=== PATIENT | female | born 2005 | race Caucasian/White ===

== ENCOUNTER 2025-03-29 17:43 | Emergency (ER) | payer MEDICAID, SELFPAY ==
--- OUTSIDE RECORDS SUMMARY | 2025-03-24 10:50 | XMS_ITS | Encounter Summary ---
Author Organization [facility] Address [address] [place] [address] Care Team Providers Care Irrigation Flume Layer Name Role Phone Departed Provider, [facility] Generic Primary Care Provider Unavailable Reason for Visit * Reason Comments Possible Encounter Details Date Type Department Care Team (Latest Contact Info) Description 03/24/2025 10:50 AM EDT Clinical Support [facility] [employer] [address] [place] [address] [phone] Dede Arauz LPN [address] [place] [phone] Amenorrhea (Primary Dx); Positive test; Screening for diabetes mellitus; Screen for sexually transmitted diseases; Screening for substance abuse; Exposure to varicella Social History Tobacco Use Types Packs/Day Years Used Date Smoking Tobacco: Never Smokeless Tobacco: Never Alcohol Use Standard Drinks/Week Comments Not Currently 0 (1 standard drink = 0.6 oz pur e alcohol) not while [facility] Answer Date Recorded In the past 12 months has [employer], gas, oil, or water [employer] threatened to shut off services in your home? No 09/12/2023 Social Connection and Isolat ion Panel [NHANES] Answer Date Recorded In a typical week, how many times do you talk on the phone with family, friends, or neighbors? More than three times a week 09/12/2023 How often do you get togethe r with friends or relatives? Twice a week 09/12/2023 How often do you attend chur or zoroastrian services? 1 to 4 times per year 09/12/2023 Do you belong to any clubs o r organizations such as druze groups, unions, fraternal or athletic groups, or school groups? No 09/12/2023 How often do you attend meet ings of the clubs or organizations you belong to? Never 09/12/2023 Are you , , di vorced, , never , or living with a partner? Never 09/12/2023 AUDIT-C Answer Date Recorded Q1: How often do you have a drink containing alcohol? Never 09/12/2023 Q2: How many drinks containi ng alcohol do you have on a typical day when you are drinking? Patient does not drink Q3: How often do you have si x or more drinks on one occasion? Never 09/12/2023 Overall Financial Resource Strain (CARDIA) Answe r Date Recorded How hard is it for you to pa y for the very basics like food, housing, medical care, and heating? Patient declined 09/12/2023 PHQ-2 Answer Date Recorded PHQ-2 Total Score 0 09/12/2023 [facility] - Occupational Stress Questionnaire Answer Date Recorded Do you feel stress - tense, restless, nervous, or anxious, or unable to sleep at night because your mind is troubled all the time - these days? Not at all 09/12/2023 Hunger Vital Sign Answer Date Recorded Within the past 12 months, y ou worried that your food would run out before you got the money to buy more. Never true 09/12/19 24 Within the past 12 months, t he food you bought just didn't last and you didn't have money to get more. Never true 09/12/2023 PRAPARE - Transportation Answer Date Re corded In the past 12 months, has l ack of transportation kept you from medical appointments or from getting medications? No 08/18 In the past 12 months, has l ack of transportation kept you from meetings, work, or from getting things needed for daily living? No 09/12/2023 Physical Activity Answer Date Recorded On average, how many days pe r week do you engage in moderate to strenuous exercise (like a brisk walk)? 3 09/12/2023 On average, how many minutes do you exercise per day at this level? 60 09/12/2023 Education Answer Date Recorded What is the highest level of school you have completed or the highest degree you have received? GED or equivalent Estimated Date of Delivery Comme nts Yes 11/13/2025 Based on last me nstrual period of 02/06/2025 Sex and Gender Information Value Date Recorded Sex Assigned at Female 04/22/2023 2:48 PM EDT Legal Sex Female 2:16 PM EST Gender Identity Female 10/23/2022 2:12 PM EDT Sexual Orientation Heterosexual (straight) 10/23 2:12 PM EDT documented as of this encounter Last Filed Vital Signs Vital Sign Reading Time Taken Comments Blood Pressure 122/66 03/24/2025 11:06 AM EDT Pulse 91 03/24/2025 11:06 AM EDT Temperature - - Respiratory Rate - - Oxygen Saturation 99% 03/24/2025 11:06 AM EDT Inhaled Oxygen Concentration - - Weight 92.5 kg (204 lb) 03/24/2025 11:06 AM EDT Height 163.8 cm (5' 4.5 ) 03/24/2025 11:06 AM ED T Body Mass Index 34.48 03/24/2025 11:06 AM EDT documented in this encounter Progress Notes * Dede Arauz LPN - 03/24/2025 11:34 AM EDT Patient seen in office today for nurse interview. Positive test in office today. LMP 02/06/2025. Patient taking vitamins. Labs ordered in EMR, patient aware to have labs drawn ASAPbefore first OB appointment. Patient denies any pain or bleeding and all precautions given. Packet mosquito bite prevention, and fish safety handout reviewed with patient and first OB scheduled for 04/07/2025 @ 11:30 am. Patient aware of first OB being at the [facility] and a complete exam including breast, vaginal, pap if needed, and STD screening. Dede Rosado LPN Cosigned by Ricco Lares MD at 03/24/2025 3:14 PM EDT documented in this encounter Plan of Treatment Upcoming Encounters Date Type Department Care Team (Late st Contact Info) Description 04/01/2025 2:15 PM EDT Office Visit [facility] [place] [address] [place] [phone] Tanvi Anthony, CHANGE DIRECTOR [address] [place] [address] 04/07/2025 11:30 AM EDT Initial [facility] [address] [facility] [address] [place] [phone] Pending Results Name Type Priority Associated Diagnoses Date /Time Hemoglobin A1C Lab Routine Amenorrhea Positive test Screening for diabetes mellitus 03/24/2025 12:25 PM EDT documented as of this encounter Procedures Procedure Name Priority Date/Time Associated Diagnosis Comments PAIN MANAGEMENT, FENTANYL, WITH CONFIRMATION, URINE Routine 03/24/2025 12:25 PM EDT Amenorrhea Positive test Screening for substance abuse HEMOGLOBINOPATHY EVALUATION Routine 03/24/2025 12:25 PM EDT Amenorrhea Positive test DRUG TOX MONITORING 9 W/CONF, URINE Routine 03/24/2025 12:25 PM EDT Amenorrhea Positive test Screening for substance abuse ANTIBODY SCREEN, REFLEX ID Routine 03/24/2025 12:25 PM EDT Amenorrhea Positive test SYPHILIS EUSEBIO REFLEX RPR TITER & TPPA Routine 03/24/2025 12:25 PM EDT Amenorrhea Positive test Screen for sexually transmitted diseases HIV 1/2 AG/AB CMIA REFLEX TO CONFIRMATION Routine 03/24/2025 12:25 PM EDT Amenorrhea Positive test Screen for sexually transmitted diseases HEPATITIS B VIRUS SURFACE ANTIBODY, QUANTITATIVE Routine 03/24/2025 12:25 PM EDT Amenorrhea Positive test Screen for sexually transmitted diseases HEPATITIS B VIRUS (HBV) SURFACE ANTIGEN SCREEN, REFLEX CONFIRMATION Routine 03/24/2025 12:25 PM EDT Amenorrhea Positive test Screen for sexually transmitted diseases COMPLETE BLOOD COUNT, WITH DIFFERENTIAL Routine 03/24/2025 12:25 PM EDT Amenorrhea Positive test HEPATITIS C VIRUS (HCV) ANTIBODY Routine 03/24/2025 12:25 PM EDT Amenorrhea Positive test Screen for sexually transmitted diseases HEPATITIS B VIRUS (HBV) CORE ANTIBODY TOTAL Routine 03/24/2025 12:25 PM EDT Amenorrhea Positive test Screen for sexually transmitted diseases ABO/RH Routine 03/24/2025 12:25 PM EDT Amenorrhea Positive test RUBELLA ANTIBODY IGG (SPANISH MEASLES) Routine 03/24/2025 12:25 PM EDT Amenorrhea Positive test URINALYSIS WITH MICROSCOPIC Routine 03/24/2025 12:25 PM EDT Amenorrhea Positive test URINE CULTURE Routine 03/24/2025 12:25 PM EDT Amenorrhea Positive test VARICELLA ZOSTER (VZV) ANTIBODY IGG Routine 03/24/2025 12:25 PM EDT Positive test Exposure to varicella POCT , URINE (CHARGE) Routine 03/24/2025 11:36 AM EDT Amenorrhea Positive test documented in this encounter Results * VARICELLA ZOSTER (VZV) ANTIBODY IGG (03/24/2025 12:25 PM EDT) Pathologist [facility] Varicella Zoster Antibody (VZV) IgG 1.11 S/CO [employer] Comment: Signal to Cut-off S/CO Interpretation --------- <1.00 Negative - Antibody not detected > or = 1.00 Positive - Antibody detected A positive result indicates that the patient has antibody to VZV but does not differentiate between an active or past infection. The clinical diagnosis must be interpreted in conjunction with the clinical signs and symptoms of the patient. This assay reliably measures immunity due to previous infection but may not be sensitive enough to detect antibodies induced by vaccination. Thus, a negative result in a vaccinated individual does not necessarily indicate susceptibility to VZV infection. A more sensitive test for vaccination-induced immunity is Varicella Zoster Virus Antibody Immunity Screen, ACIF. Blood Blood specimen / Unknown 03/24/2025 12:25 PM EDT 03/24/2025 12:25 PM EDT Narrative e-channel - 03/26/2025 6:48 AM EDT FASTING:NO FASTING: NO Ricco Lares MD LAB BLOOD ORDERABLES Final Re sult [facility] [address] [place] [phone] * HEMOGLOBINOPATHY EVALUATION (03/24/2025 12:25 PM EDT) Red Blood Cell Count 4.05 3.80 - 5.10 Million/u L [employer] Hemoglobin 11.8 11.7 - 15.5 g/dL [employer] Hematocrit 36.5 35.0 - 45.0 % [employer]able MCV 90.1 80.0 - 100.0 fL [employer] MCH 29.1 27.0 - 33.0 pg [employer]able RDW 13.2 11.0 - 15.0 % [employer] HGB A 97.7 >96.0 % [employer] Hgb F <1.0 <2.0 % [employer] Hgb A2 2.3 2.0 - 3.2 % Invoiceable Hgb Interpretation Q [employer] Comment: Normal phenotype. Blood Blood specimen / Unknown 03/24/2025 12:25 PM EDT 03/24/2025 12:25 PM EDT Narrative e-channel - 03/26/2025 6:48 AM EDT FASTING:NO FASTING: NO Ricco Lares MD LAB BLOOD ORDERABLES Final Re sult Performing Organization Address [facility] [[email or web address]] de Phone Number [facility] [address] [place] [phone] * RUBELLA ANTIBODY, IGG (SPANISH MEASLES) (03/24/2025 12:25 PM EDT) Rubella Antibody IgG 3.64 Index [employer] Comment: Index Interpretation ----- <0.90 Not consistent with immunity 0.90-0.99 Equivocal > or = 1.00 Consistent with immunity The presence of rubella IgG antibody suggests immunization or past or current infection with rubella virus. Blood Blood specimen / Unknown 03/24/2025 12:25 PM EDT 03/24/2025 12:25 PM EDT Narrative e-channel - 03/26/2025 6:48 AM EDT FASTING:NO FASTING: NO Ricco Lares MD LAB BLOOD ORDERABLES Final Re sult Performing Organization Address [facility] de Phone Number [facility] [address] [place] [phone] * URINE CULTURE (03/24/2025 12:25 PM EDT) Pathologist [facility] Culture SEE NOTE [employer] Comment: CULTURE, URINE, ROUTINE Micro Number: [id number] Test Status: Final Specimen Source: Urine, clean catch Specimen Quality: Adequate Result: Less than 10,000 CFU/mL of single Gram positive organism isolated. No further testing will be performed. If clinically indicated, recollection using a method to minimize contamination, with prompt transfer to Urine Culture Transport Tube, is recommended. Urine 03/24/2025 12:2 5 PM EDT 03/24/2025 12:25 PM EDT Narrative e-channel - 03/26/2025 6:48 AM EDT FASTING:NO FASTING: NO us Ricco Lares MD LAB AMB MICRO ORDERABLES Sera l Result Performing Organization Address [facility] [[email or web address]] de Phone Number Dada [address] [place] [phone] * Urinalysis with Microscopic (03/24/2025 12:25 PM EDT) Color YELLOW YELLOW [employer] Clarity CLEAR CLEAR Invoiceable Specific [place] 1.012 1.001 - 1.035 Invoiceable pH 7.0 5.0 - 8.0 [facility] Glucose, Urine, Random NEGATIVE NEGATIVE [employer] Bilirubin NEGATIVE NEGATIVE [employer]able Ketones NEGATIVE NEGATIVE [employer] Blood NEGATIVE NEGATIVE [employer] Protein NEGATIVE NEGATIVE [employer]able Nitrite NEGATIVE NEGATIVE [employer] Leukocyte Esterase NEGATIVE NEGATIVE [employer] WBC NONE SEEN < OR = 5 /HPF [employer]able RBC NONE SEEN < OR = 2 /HPF [employer] Squamous Epithelial Cells 0-5 < OR = 5 /HPF [employer] Bacteria NONE SEEN NONE SEEN /HPF [employer]able Hyaline Cast NONE SEEN NONE SEEN /LPF [employer] Note [employer] Comment: This urine was analyzed for the presence of WBC, RBC, bacteria, casts, and other formed elements. Only those elements seen were reported. Urine Urine specimen obtained by clean catch procedure / Unknown 03/24/2025 12:25 PM EDT 03/24/2025 12:25 PM EDT Narrative [facility] - 03/26/2025 6:48 AM EDT FASTING:NO FASTING: NO us Ricco Lares MD URINE ORDERABLES Final Result [facility] [address] [place] [phone] * Pain Management, Fentanyl, With Confirmation, Urine (Q [id number]) (03/24/2025 12:25 PM EDT) Fentanyl, Urine NEGATIVE <0.5 ng/mL [employer] Notes and Comments Q [facility]est [employer] Comment: This drug testing is for medical treatment only. Analysis was performed as non-forensic testing and these results should be used only by healthcare providers to render diagnosis or treatment, or to monitor progress of medical conditions. LDT Notes: Confirmation tests were developed and their analytical performance characteristics have been determined by [employer]. It has not been cleared or approved by the FDA. This assay has been validated pursuant to the CLIA regulations and is used for clinical purposes. Healthcare Providers needing Interpretation assistance, please contact us at [phone] ( ) M-F, 8am to 10pm EST Urine Urine specimen obtained by clean catch procedure / Unknown 03/24/2025 12:25 PM EDT 03/24/2025 12:25 PM EDT Narrative [facility] - 03/26/2025 6:48 AM EDT FASTING:NO FASTING: NO us Ricco Lares MD URINE ORDERABLES Final Result [facility] [address] [place] [phone] * Drug Tox Monitoring 9 w/Conf, Urine (Q [id number]) (03/24/2025 12:25 PM EDT) Amphetamines NEGATIVE <500 ng/mL [facility] Barbiturates, Urine NEGATIVE <300 ng/mL [employer] Benzodiazepines Urine NEGATIVE <100 ng/mL [facility] Buprenorphine, Urine NEGATIVE <5 ng/mL [facility] Cocaine, Semi-Quant NEGATIVE <150 ng/mL [facility] Heroin Metabolite NEGATIVE <10 ng/mL [facility] Marijuana Metabolite, 20 NEGATIVE <20 ng/mL [facility] MDMA/MDA NEGATIVE <500 ng/mL [facility] Methadone NEGATIVE <100 ng/mL [facility] Opiates Ur Ql NEGATIVE <100 ng/mL [facility] Oxycodone NEGATIVE <100 ng/mL [facility] Phencyclidine NEGATIVE <25 ng/mL [facility] Comment [facility] Comment: See Note 1 Note 1 This drug testing is for medical treatment only. Analysis was performed as non-forensic testing and these results should be used only by healthcare providers to render diagnosis or treatment, or to monitor progress of medical conditions. For assistance with interpreting these drug results, please contact a [employer] Toxicology Specialist: [phone] ( ), M-F, 8am-6pm EST. Urine Urine specimen obtained by clean catch procedure / Unknown 03/24/2025 12:25 PM EDT 03/24/2025 12:25 PM EDT Narrative e-channel - 03/26/2025 6:48 AM EDT FASTING:NO FASTING: NO Ricco Lares MD URINE ORDERABLES Final Result Performing Organization Address [facility] [[email or web address]] de Phone Number [facility] [address] [place] [phone] * Syphilis EUSEBIO reflex RPR Titer & TPPA (03/24/2025 12:25 PM EDT) Pathologist [facility] Syphilis EUSEBIO NEGATIVE NEGATIVE [employer] Comment: No antibodies to T. pallidum (the agent causing syphilis) were detected in the specimen. This result, however, does not exclude very recent T. pallidum infection; testing of a second specimen, collected 2-4 weeks after this specimen, is recommended if the index of suspicion for recent infection is high. Blood Blood specimen / Unknown 03/24/2025 12:25 PM EDT 03/24/2025 12:25 PM EDT Narrative e-channel - 03/26/2025 6:48 AM EDT FASTING:NO FASTING: NO Ricco Lares MD LAB BLOOD ORDERABLES Final Re sult Performing Organization Address [facility] [[email or web address]] de Phone Number [facility] [address] [place] [phone] * HIV 1/2 Ag/Ab CMIA Reflex to Confirmation (03/24/2025 12:25 PM EDT) HIV Final Interpretation HIV NEGATIVE [employer] Comment: HIV-1 antigen and HIV-1/HIV-2 antibodies were not detected. There is no laboratory evidence of HIV infection. HIV Ag/Ab, 4th Gen NON-REACTIV E NON-REAC TIVE [employer] Blood Blood specimen / Unknown 03/24/2025 12:25 PM EDT 03/24/2025 12:25 PM EDT Narrative e-channel - 03/26/2025 6:48 AM EDT FASTING:NO FASTING: NO Ricco Lares MD LAB BLOOD ORDERABLES Final Re sult Performing Organization Address [facility] de Phone Number Dada [address] [place] [phone] * HEPATITIS C VIRUS (HCV) ANTIBODY (03/24/2025 12:25 PM EDT) Hepatitis C Antibody NON-REACT DIANE NON-REACT DIANE [employer] Comment: HCV antibody was non-reactive. There is no laboratory evidence of HCV infection. In most cases, no further action is required. However, if recent HCV exposure is suspected, a test for HCV RNA (test code 80536) is suggested. For additional information please refer to http://education.[employer]/faq/DZM07d6 (This link is being provided for informational/ educational purposes only.) Blood Blood specimen / Unknown 03/24/2025 12:25 PM EDT 03/24/2025 12:25 PM EDT Narrative e-channel - 03/26/2025 6:48 AM EDT FASTING:NO FASTING: NO Ricco Lares MD LAB BLOOD ORDERABLES Final Re sult Performing Organization Address [facility] [[email or web address]] de Phone Number [facility]ada [address] [place] [phone] * HEPATITIS B VIRUS (HBV) CORE ANTIBODY TOTAL (03/24/2025 12:25 PM EDT) Hepatitis B Core Antibody Total NON-REACT DIANE NON-REACT DIANE [employer] Comment: For additional information, please refer to http://EXENDIS.[employer]/faq/DXP983 (This link is being provided for informational/ educational purposes only.) Blood Blood specimen / Unknown 03/24/2025 12:25 PM EDT 03/24/2025 12:25 PM EDT Narrative [facility] - 03/26/2025 6:48 AM EDT FASTING:NO FASTING: NO Ricco Lares MD LAB BLOOD ORDERABLES Final Re sult Performing Organization Address [facility] de Phone Number [facility] [address] [place] [phone] * (ABNORMAL) Hepatitis B Virus Surface Antibody, Quantitative (03/24/2025 12:25 PM EDT) Pathologist [facility] Hepatitis B Surface Ab (Quant) <5(L) > OR = 10 mIU/mL [employer] Comment: PATIENT DOES NOT HAVE IMMUNITY TO HEPATITIS B VIRUS. For additional information, please refer to http://[employer]/faq/KHJ415 (This link is being provided for informational/ educational purposes only). Blood Blood specimen / Unknown 03/24/2025 12:25 PM EDT 03/24/2025 12:25 PM EDT [facility] - 03/26/2025 6:48 AM EDT FASTING:NO FASTING: NO Ricco Lares MD LAB BLOOD ORDERABLES Final Re sult Performing Organization Address [facility] de Phone Number Dada [address] [place] [phone] * HEPATITIS B VIRUS (HBV) SURFACE ANTIGEN SCREEN, REFLEX CONFIRMATION (03/24/2025 12:25 PM EDT) Pathologist [facility] Hepatitis B Surface Ag Screen NON-REACT DIANE NON-REACT DIANE [employer] Comment: For additional information, please refer to http://EXENDIS.[employer]/faq/LGV169 (This link is being provided for informational/ educational purposes only.) Blood Blood specimen / Unknown 03/24/2025 12:25 PM EDT 03/24/2025 12:25 PM EDT Narrative [facility] - 03/26/2025 6:48 AM EDT FASTING:NO FASTING: NO us Ricco Lares MD LAB BLOOD ORDERABLES Final Re sult [facility] [address] [place] [phone] * Complete Blood Count, with Differential (03/24/2025 12:25 PM EDT) White Blood Cell Count 10.7 3.8 - 10.8 Thousand/u L Invoiceable Red Blood Cell Count 4.05 3.80 - 5.10 Million/uL Invoiceable Hemoglobin 11.8 11.7 - 15.5 g/dL [facility] Hematocrit 36.5 35.0 - 45.0 % [facility] MCV 90.1 80.0 - 100.0 fL [facility] MCH 29.1 27.0 - 33.0 pg [facility] MCHC 32.3 32.0 - 36.0 g/dL [employer] Comment: For adults, a slight decrease in the calculated MCHC value (in the range of 30 to 32 g/dL) is most likely not clinically significant; however, it should be interpreted with caution in correlation with other red cell parameters and the patient's clinical condition. RDW 13.2 11.0 - 15.0 % [facility] Platelet Count 362 140 - 400 Thousand/u L [facility] MPV 9.6 7.5 - 12.5 fL [facility] Abs Neutrophils Auto 7,747 1,500 - 7,800 cells/uL [facility] Abs Lymphocytes Auto 2,172 850 - 3,900 cells/uL [facility] Abs Monocytes Auto 696 200 - 950 cells/uL [facility] Abs Eosinophils Auto 54 15 - 500 cells/uL [facility] Abs Basophils Auto 32 0 - 200 cells/uL [facility] Neutrophils Auto 72.4 % [facility] Lymphocytes Auto 20.3 % [facility] Monocytes Auto 6.5 % [facility] Eosinophils Auto 0.5 % [facility] Basophils Auto 0.3 % [facility] Blood Blood specimen / Unknown 03/24/2025 12:25 PM EDT 03/24/2025 12:25 PM EDT Narrative [facility] - 03/26/2025 6:48 AM EDT FASTING:NO FASTING: NO Ricco Lares MD LAB BLOOD ORDERABLES Final Re sult Performing Organization Address [facility] Co de Phone Number Dada [address] [place] [phone] * Antibody Screen, Reflex ID (03/24/2025 12:25 PM EDT) Pathologist [facility] Antibody Screen, RBC w/Refl ID, Titer & Ag NO ANTIBODIES DETECTED [employer] Comment: Reference range No antibodies detected This assay is a screening test for the detection of red blood cell antibodies. The test is not to be used for pretransfusion screening or for the medical management of an alloimmunized . Blood Blood specimen / Unknown 03/24/2025 12:25 PM EDT 03/24/2025 12:25 PM EDT Narrative [facility] - 03/26/2025 6:48 AM EDT FASTING:NO FASTING: NO Ricco Lares MD BLOOD BANK TEST ORDERABLES Fi nal Result Performing Organization Address [facility] Co de Phone Number Dada [address] [place] [phone] * ABO/RH (03/24/2025 12:25 PM EDT) Pathologist [facility] ABO Group A Invoiceable Rh Type RH(D) POSITIVE [employer] Comment: For additional information, please refer to http://education.[employer]/faq/HFG878 (This link is being provided for informational/ educational purposes only.) Blood Blood specimen / Unknown 03/24/2025 12:25 PM EDT 03/24/2025 12:25 PM EDT Narrative [facility] - 03/26/2025 6:48 AM EDT FASTING:NO FASTING: NO us Ricco Lares MD BLOOD BANK TEST ORDERABLES Fi nal Result [facility] [address] [place] [phone] * (ABNORMAL) POCT , Urine (03/24/2025 11:36 AM EDT) Preg Test, Ur Positive(A ) Negative Lot Number na Change Person Pass Pass Urine 03/24/2025 11:3 6 AM EDT Ricco Lares MD POINT OF CARE TEST ORDERABLES Final Result documented in this encounter Visit Diagnoses Diagnosis Amenorrhea- Primary Absence of menstruation Positive test examination or test, positive result Screening for diabetes [place] Screen for sexually transmitted diseases Screening examination for venereal disease Screening for substance abuse Screening for unspecified condition Exposure to varicella Contact with or exposure to varicella documented in this encounter Care Teams Irrigation Flume Layer Relationship Specialty Start Date End Date Departed Provider, Franki Cid Generic PCP - General 12/18/24 documented as of this encounter
--- NOTE | ~2025-03-29 | US_ITS ---
CLINICAL HISTORY: Approximately 8 weeks . Complaining abdom US OB 1st trimester transabdominal Comparison: None provided Findings: Single intrauterine . CRL: 9.9 mm. EGA: 7 weeks, 1 day. ISRA: November 14, 2025. Normal yolk sac . Cardiac activity: 158 bpm. No subchorionic bleed. Right ovary 2.5 x 2.9 x 2.2 cm. Left ovary 2.4 x 2.4 x cm. IMPRESSION: Single intrauterine estimated 7 weeks, 1 day gestational age by today's ultrasound criteria. This document has been electronically signed by: Mary Bonilla MD on 03/29/2025 20:27:44
--- NOTE | 2025-03-29 17:45 | ED_ITS ---
HPI - General Adult General Chief complaint: Nausea/Vomiting/Diarrhea Stated complaint: vomiting, ? 7 wks Time Seen by Provider: 03/29/25 18:29 Related Data Previous Rx's ?Medication ?Instructions ?Recorded nitrofurantoin 100 mg PO Q12H 7 days #14 ca ps 03/29/25 monohydrate/macrocrystals 100 mg capsule (Macrobid) ondansetron 4 mg disintegrating 4 mg PO TID PRN nausea and 03/29/25 tablet vomiting 5 days #10 tabs Allergies Allergy/AdvReac Type Severity Reaction Status Date / Time No Known Allergies Allergy Verified 03/29/25 17:47 PMFSH Social History Social History Advance Directives: No Advance Directives Information Provided: No Do you have a plan to hurt others: No Plan Physical Exam ED Vital Signs: Vital Signs - 24 hr 03/29/25 17:46 Temperature 97.4 F Pulse Rate 89 Respiratory Rate 18 Blood Pressure 125/58 L Pulse Oximetry 97 Oxygen Delivery Method Room Air BMI result Body Mass Index 34.5 Course Course Course Narrative: Rapid medical examination performed in triage by Florencia Anderson PA-C. Patient is a 19 year old assigned female at presenting to the emergency department with nausea and vomiting in early . Detailed physical exam and review of systems are deferred to the database administration manager. Labs ordered. Patient placed back in the waiting room pending room availability and results. Patient denies any vaginal bleeding, vaginal discharge, or abdominal pain. Has an OBGYN appointment upcoming. Patient seen and dispositioned by Dr. Peralta. Please see his note from today. Medications Administered Discontinued Medications Generic Name Dose Route Start Last Admin Trade Name Collinsq PRN Reason Stop Dose Admin Ceftriaxone Sodium 1 gm 03/29/25 19:01 03/29/25 19:48 Ceftriaxone Sodium 1 Gm Vial IVPUSH 03/29/25 19:02 1 gm ONCE ONE Administration Sodium Chloride 1,000 mls @ 999 mls/hr 03/29/25 19:00 03/29/25 19:47 Ns IV 03/29/25 20:00 999 mls/hr .Q1H1M ILDA Administration Sodium Chloride 1,000 mls @ 999 mls/hr 03/29/25 19:00 03/29/25 19:48 Ns IV 03/29/25 20:00 999 mls/hr .Q1H1M ILDA Administration Ondansetron HCl 4 mg 03/29/25 19:00 03/29/25 19:47 Ondansetron Hcl 4 Mg/2 Ml Vial IVPUSH 03/29/25 19:01 4 mg ONCE ONE Administration Medical Decision Making Lab Data 03/29/25 17:55 03/29/25 17:55 Labs: Lab Results 03/29/25 03/29/25 03/29/25 Range/Units 17:55 18:00 19:22 WBC 10.7 (4.8-10.8) X10*3/uL RBC 4.09 L (4.20-5.50) X10*6/uL Hgb 12.1 (12.0-16.0) g/dl Hct 34.8 L (37.0-47.0) % MCV 85.1 (80.0-98.0) fL MCH 29.6 (27.0-33.0) pg MCHC 34.8 (31.0-35.0) g/dl RDW 13.6 (11.0-16.0) % Plt Count 339 (160-400) X10*3/uL MPV 8.8 L (9.4-12.3) fL Immature Gran % (Auto) 0.3 (0.0-0.4) % Neut % (Auto) 77.2 H (45-73) % Lymph % (Auto) 16.8 L (20-40) % [place] % (Auto) 5.1 (2-11) % Eos % (Auto) 0.3 (0-4) % Baso % (Auto) 0.3 (0-2) % Lymph # (Auto) 1.8 (1.2-4.9) X10*3/uL [place] # (Auto) 0.6 (0.1-1.2) X10*3/uL Eos # (Auto) 0.0 (0.0-0.4) X10*3/uL Baso # (Auto) 0.0 (0.0-0.2) X10*3/uL Abs Immat Gran (auto) 0.03 (0.00-0.03) X10*3/uL Absolute Neuts (auto) 8.3 (2.0-8.3) x10*3/uL Absolute Nucleated RBC 0.000 (0.0-0.012) X10*3/uL Nucleated RBC % (auto) 0.0 (0.0-0.2) /100WBC Sodium 138 (135-145) mmol/L Potassium 3.7 (3.3-5.1) mmol/L Chloride 102 (96-108) mmol/L Carbon Dioxide 24 (22-29) mmol/L Anion Gap 16 (12-20) BUN 5 L (9-16) mg/dL Creatinine 0.59 (0.5-1.4) mg/dL Estim Creat Clear Calc 165.1 Estimated GFR > 60 Random Glucose 88 (60-115) mg/dL Lactic Acid 0.9 (0.5-2.0) mmol/L Calcium 9.6 (8.4-10.2) mg/dL Magnesium 1.8 (1.6-2.6) mg/dL Total Bilirubin 0.9 (0.0-1.0) mg/dL AST 22 (5-31) U/L ALT 20 (0-31) U/L Alkaline Phosphatase 60 (39-117) U/L Total Protein 7.6 (6.5-8.0) g/dL Albumin 4.3 (3.5-5.0) g/dL Beta HCG, Quant 459252 mIU/mL Urine Color Dark Yellow Urine Appearance Cloudy Urine pH 7.5 (5.0-9.0) Ur Specific [place] 1.025 (1.005-1.025) Urine Protein 100 (2+) H (Neg-Trace) mg/dL Urine Glucose (UA) Negative (Negative) mg/dL Urine Ketones 15 (Negative) mg/dL Urine Blood Negative (Negative) Urine Nitrite Negative (Negative) Ur Leukocyte Esterase Large (3+) H (Negative) Urine RBC 0-2 (0-2) /HPF Urine WBC >50 H (0-5) /HPF Ur Squamous Epith Cells >20 (0-2) /HPF Urine Bacteria 4+ (None Seen) Hyaline Casts 3-5 (0-2) /LPF Blood Type 03/29/25 Range/Units 19:32 WBC (4.8-10.8) X10*3/uL RBC (4.20-5.50) X10*6/uL Hgb (12.0-16.0) g/dl Hct (37.0-47.0) % MCV (80.0-98.0) fL MCH (27.0-33.0) pg MCHC (31.0-35.0) g/dl RDW (11.0-16.0) % Plt Count (160-400) X10*3/uL MPV (9.4-12.3) fL Immature Gran % (Auto) (0.0-0.4) % Neut % (Auto) (45-73) % Lymph % (Auto) (20-40) % [place] % (Auto) (2-11) % Eos % (Auto) (0-4) % Baso % (Auto) (0-2) % Lymph # (Auto) (1.2-4.9) X10*3/uL [place] # (Auto) (0.1-1.2) X10*3/uL Eos # (Auto) (0.0-0.4) X10*3/uL Baso # (Auto) (0.0-0.2) X10*3/uL Abs Immat Gran (auto) (0.00-0.03) X10*3/uL Absolute Neuts (auto) (2.0-8.3) x10*3/uL Absolute Nucleated RBC (0.0-0.012) X10*3/uL Nucleated RBC % (auto) (0.0-0.2) /100WBC Sodium (135-145) mmol/L Potassium (3.3-5.1) mmol/L Chloride (96-108) mmol/L Carbon Dioxide (22-29) mmol/L Anion Gap (12-20) BUN (9-16) mg/dL Creatinine (0.5-1.4) mg/dL Estim Creat Clear Calc Estimated GFR Random Glucose (60-115) mg/dL Lactic Acid (0.5-2.0) mmol/L Calcium (8.4-10.2) mg/dL Magnesium (1.6-2.6) mg/dL Total Bilirubin (0.0-1.0) mg/dL AST (5-31) U/L ALT (0-31) U/L Alkaline Phosphatase (39-117) U/L Total Protein (6.5-8.0) g/dL Albumin (3.5-5.0) g/dL Beta HCG, Quant mIU/mL Urine Color Urine Appearance Urine pH (5.0-9.0) Ur Specific [place] (1.005-1.025) Urine Protein (Neg-Trace) mg/dL Urine Glucose (UA) (Negative) mg/dL Urine Ketones (Negative) mg/dL Urine Blood (Negative) Urine Nitrite (Negative) Ur Leukocyte Esterase (Negative) Urine RBC (0-2) /HPF Urine WBC (0-5) /HPF Ur Squamous Epith Cells (0-2) /HPF Urine Bacteria (None Seen) Hyaline Casts (0-2) /LPF Blood Type A Positive Discharge Plan Discharge Clinical Impression: Hyperemesis arising during , UTI (urinary tract infection) Patient Disposition: Home, Self-Care Instructions: Hyperemesis Gravidarum (ED), Urinary Tract Infection in (ED) Prescriptions: New ondansetron 4 mg tablet,disintegrating 4 mg PO TID PRN (Reason: nausea and vomiting) 5 Days Qty: 10 0RF nitrofurantoin monohyd/m-cryst [Macrobid] 100 mg capsule 100 mg PO Q12H 7 Days Qty: 14 0RF Rx Instructions: must administer with a meal/food Print Language: Prydeinig
[2025-03-29 17:46] VITALS: BP 125/58; PULSE 89; RESP 18; TEMP 36.3; O2SAT 97; BMI 34.5
[2025-03-29 18:08] LABS: Appearance Urine Cloudy; Glucose Urine UA Negative (Negative); PH 7.5 (5.0-9.0); Specific Gravity - Urine 1.025 (1.005-1.025); UMIC TRIGGER UACC YES
[2025-03-29 18:08] LABS: Hematocrit 34.8 % (37.0-47.0); Hemoglobin 12.1 g/dl (12.0-16.0); Imm Gran Abs Auto 0.03 X10*3/uL (0.00-0.03); Imm Gran Pct Auto 0.3 % (0.0-0.4); Lymphocytes Absolute Auto 1.8 X10*3/uL (1.2-4.9); MANUAL DIFF FLAG NO; Mean Corpuscular HGB Conc 34.8 g/dl (31.0-35.0); Mean Corpuscular Hemoglobin 29.6 pg (27.0-33.0); Mean Corpuscular Volume 85.1 fL (80.0-98.0); NRBC Abs Auto 0.000 X10*3/uL (0.0-0.012); NRBC Pct Auto 0.0 /100WBC (0.0-0.2); Platelet Count 339 X10*3/uL (160-400); Red Blood Count 4.09 X10*6/uL (4.20-5.50); White Blood Count 10.7 X10*3/uL (4.8-10.8)
[2025-03-29 18:17] LABS: UACC Culture Trigger YES
[2025-03-29 18:26] LABS: Alanine Aminotransferase 20 U/L (0-31); Albumin Level 4.3 g/dL (3.5-5.0); Alkaline Phosphatase 60 U/L (39-117); Anion Gap 16 (12-20); Aspartate Amino Transferase 22 U/L (5-31); Blood Urea Nitrogen 5 mg/dL (9-16); Calcium 9.6 mg/dL (8.4-10.2); Carbon Dioxide 24 mmol/L (22-29); Chloride 102 mmol/L (96-108); Creatinine Clr Calc Pharmacy 165.1; Estimated Glomerular Filt Rate > 60; Magnesium 1.8 mg/dL (1.6-2.6); Potassium 3.7 mmol/L (3.3-5.1); Sodium 138 mmol/L (135-145); Total Protein 7.6 g/dL (6.5-8.0)
--- OUTSIDE RECORDS SUMMARY | 2025-03-29 18:49 | XMS_ITS | Encounter Summary ---
Author Organization Formerly [facility] Address [address] [place] [address] Care Team Providers Care Media Developer Name Role Phone Departed Provider, On License Of [facility] Generic Primary Care Provider Unavailable Encounter Details Date Type Department Care Team (Latest Contact Info) Description 03/24/2025 Travel Social History Tobacco Use Types Packs/Day Years Used Date Smoking Tobacco: Never Smokeless Tobacco: Never Alcohol Use Standard Drinks/Week Comments Not Currently 0 (1 standard drink = 0.6 oz pur e alcohol) not while [facility] Utilities Answer Date Recorded In the past 12 months has [employer], gas, oil, or water [employer] threatened to shut off services in your [...] 09/12/2023 How often do you attend chur ch or muslim services? 1 to 4 times per year 09/12/2023 Do you belong to any clubs o r organizations such as faith groups, unions, fraternal or athletic groups, or [...] Date Recorded PHQ-2 Total Score 0 09/12/[address] [facility] - Occupational Stress Questionnaire Answer Date Recorded [...] PM EDT documented as of this encounter Plan of Treatment Upcoming Encounters Date Type Department Care Team (Late Contact Info) Description 04/01/2025 2:15 PM EDT Office Visit [facility] [place] [address] [place] [phone] Tanvi Anthony, DAPHNE [address] [place], [place] [id number] 04/07/2025 11:30 AM EDT Initial [facility] [address] [facility] [address] [place] [phone] documented as of this encounter Visit Diagnoses Not on filedocumented in this encounter Care Teams Media Developer Relationship Specialty Start Date End Date Departed Provider, Franki Cid Generic PCP - General 12/18/24 documented as of this encounter
--- OUTSIDE RECORDS SUMMARY | 2025-03-29 18:50 | XMS_ITS ---
Author Name [facility] Unknown History of Medication Use Medication Directions Dispensed Refills Start Date End Date Stat us vitamin with iron and folic acid ( PLUS) 27-1 MG Tab Take 1 tablet by mouth daily. Any generic covered by insurance is ok. 03/24/2025 active etonogestrel-ethin yl estradiol (NuvaRing) 0.12-0.015 MG/24HR vaginal ring Insert vaginally and leave in place for 3 consecutive weeks, then remove for 1 week. 12/06/2023 03/15/2024 active copper (PARAGARD) IUD IUD 1 Intra Uterine Device by Intrauterine route once. active Problems Problem Status Onset Date Problem Type Date of Resoluti on Source Exposure to varicella [facility] for [facility] mellitus [facility] Obesity (BMI 30-39.9) active 2023-09-[address] [facility] Iron deficiency anemia active 2023-09-[address] [facility] Amenorrhea active [facility] Positive test active [facility] Screen for sexually transmitted diseases active EncounterDiagnosisAct [facility] Screening for substance abuse active EncounterDiagnosisAct [facility] Immunizations Vaccine Date Source Lot Number Status Covid-19 mRNA Lars-sucrose S easonal Vaccine - Pfizer 30 mcg/0.3 mL 12 years and older 09/13/2023 [facility] [id number] completed Covid-19 mRNA Lars-sucrose V accine () - Pfizer 30 mcg/0.3 mL 09/13/2023 [facility] [id number] compl eted HPV Nonavalent 09/13/2023 [facility] [id number] completed HPV Nonavalent 09/13/2023 [facility] [id number] completed Covid-19 mRNA Bivalent Vacci ne - Pfizer 30 mcg/0.3mL 11/01/2022 [facility] [id number] completed Covid-19 mRNA Bivalent Vacci ne - Pfizer 30 mcg/0.3mL 12+ 11/01/2022 [facility] [id number] completed HPV Nonavalent 11/01/2022 [facility] [id number] completed HPV Nonavalent 11/01/2022 [facility] [id number] completed Covid-19 MRNA Primary Series Vaccine - Pfizer 12+ Lars-Sucrose 04/20/20[facility] Covid-19 MRNA Primary Series Vaccine - Pfizer 12+ Lars-Sucrose 04/20/2022 [facility] completed Covid-19 MRNA Primary Series Vaccine - Pfizer 12+ Lars-Sucrose 03/30/2022 [facility] completed Covid-19 MRNA Primary Series Vaccine - Pfizer 12+ Lars-Sucrose 03/30/2022 [facility] completed Tdap 07/17/2014 [facility] Tdap 07/17/2014 [facility] completed Encounters Encounter Type Encounter Reason Primary Diagnosis Location Date Ambulatory Amenorrhea, unspecified Amenorrhea, unspecified [facility] 03/24/2025 Ambulatory Follow-up Follow-up [facility] 03/15/2024 Ambulatory Contraception Contraception [facility] 12/06/2023 Ambulatory Encounter for genera l adult medical examination without abnormal findings Encounter for general adult medical examination without abnormal findings [facility] 09/13/2023 Ambulatory Displacement of intrauterine contraceptive device, initial encounter Displacement of intrauterine contraceptive device, initial encounter [facility] 04/25/2023 Ambulatory Persons encounte [facility] in other specified circumstances [facility] 11/01/2022 Ambulatory Persons encounte [facility] health services in other specified circumstances [facility] 08/24/2022 Care Team Organization Name Specialty Phone Email Start Date End Da te [facility] DEPARTED PROVIDER Primary Care 03/24/2025 [facility] DEPARTED PROVIDER Primary Care 03/14/2025 [facility] 11/27/2024 [facility] 11/14/2023 [facility] Mohinder Goodson Primary Care 11/01/2022 [facility] MOHINDER GOODSON Primary Care 08/31/2022 08/31/19 [facility] NO PCP Primary Care 08/24/2022 08/24/2022 [facility] PCP,No Primary Care 08/24/2022 [facility] 07/12/2022
--- OUTSIDE RECORDS SUMMARY | 2025-03-29 18:50 | XMS_ITS | Clinical Summary ---
Author Organization [facility] Address [address] [place] [address] Care Team Providers Care Teacher'S Assistant Name Role Phone Departed Provider, Franki Pc Generic Primary Care Provider Unavailable Allergies No known active allergies Medications vitamin with iron and folic acid ( PLUS) 27-1 MG TabIndications:Po sitive test Take 1 tablet by mouth daily. Any generic covered by insurance is ok. 90 tablet 3 03/24/20 25 Active etonogestrel-ethi nyl estradiol (NuvaRing) 0.12-0.015 MG/24HR vaginal ringIndications:E ncounter for evaluation regarding contraception options Insert vaginally and leave in place for 3 consecutive weeks, then remove for 1 week. 3 insert(s) 3 03/15/20 24 025 Discontin ued(Thera py completed ) Active Problems Problem Noted Date Diagnosed Date Offer Hep B vaccine 03/25/2025 Iron deficiency anemia 09/13/2023 Obesity (BMI 30-39.9) 09/13/2023 Estimated Date of Delivery Comme nts Yes 11/13/2025 Based on last me nstrual period of 02/06/2025 Resolved Problems Problem Noted Date Diagnosed Date Resolved Date Bacterial vaginosis 11/03/2022 09/13/19 24 Encounters Date Type Department Care Team Description 03/24/2025 10:50 AM EDT Clinical Support [facility] [employer] [address] [place] [address] Dede Arauz LPN Amenorrhea (Primary Dx); Positive test; Screening for diabetes mellitus; Screen for sexually transmitted diseases; Screening for substance abuse; Exposure to varicella 03/24/2025 Travel from Last 3 Months Immunizations Immunization Administration Dates Next Due Covid-19 MRNA Primary Series Vaccine - Pfizer 12+ Lars-Sucrose 04/20/2022,03/30/2022 Covid-19 mRNA Bivalent Vacci ne - Pfizer 30 mcg/0.3mL 12+ 11/01/2022 Covid-19 mRNA Lars-sucrose S easonal Vaccine - Pfizer 30 mcg/0.3 mL 12 years and older 09/13/2023 HPV Nonavalent 09/13/2023,11/01/2022 Tdap 07/17/2014 Family History Medical History Relation Name Comments Diabetes Paternal Grandfather Jesus Alberto Hannah Hypertension Paternal Grandmother Angie velazquez Relation Name Status Comments Paternal Grandfather Jesus Alberto Hannah Paternal Grandmother Angie velazquez Social History Tobacco Use Types Packs/Day Years Used Date Smoking Tobacco: Never Smokeless Tobacco: Never Tobacco Cessation:Counseling Given: Not Answered Alcohol Use Standard Drinks/Week Comments Not Currently 0 (1 standard drink = 0.6 oz pur e alcohol) not while [employer] Answer Date Recorded In the past 12 months has ihiji, gas, oil, or water [employer] threatened to shut off services in your [...] week 09/12/2023 How often do you attend [facility]? 1 to 4 times per year 09/12/2023 Do you belong to any clubs o r organizations such as protestant groups, unions, fraternal or athletic groups, or [...] Date Recorded PHQ-2 Total Score 0 09/12/2023 [facility] - Occupational Stress Questionnaire Answer Date Recorded [...] Orientation Heterosexual (straight) 10/23 2:12 PM EDT Last Filed Vital Signs Vital Sign Reading Time Taken Comments Blood Pressure 122/66 03/24/2025 11:06 AM EDT Pulse 91 03/24/2025 11:06 AM EDT Temperature 36.5 C (97.7 F) 09/13/2023 11:22 AM EST Respiratory Rate 12 09/13/2023 11:22 AM EST Oxygen Saturation 99% 03/24/2025 11:06 AM EDT Inhaled Oxygen Concentration - - Weight 92.5 kg (204 lb) 03/24/2025 11:06 AM EDT Height 163.8 cm (5' 4.5 ) 03/24/2025 11:06 AM ED T Body Mass Index 34.48 03/24/2025 11:06 AM EDT Plan of Treatment Upcoming Encounters Date Type Department Care Team (Late st Contact Info) Description 04/01/2025 2:15 PM EDT Office Visit [facility] [place] [address] [place] [phone] Tanvi Anthony APRN [address] [place], [place] [phone] 04/07/2025 11:30 AM EDT Initial [facility] [address] [facility] [address] [place] [address] Health Maintenance Due Date Last Done Comments HPV Vaccines (3 - 3-dose series) 12/06/2023 09/13/2023, 11/01/2022 Pap Smear (Ages 21-65) 2024 DTaP/Tdap/Td Vaccines (2 - Td or Tdap) 07/17/2024 07/17/2014 Influenza Vaccine 02/14/2025 COVID-19 Vaccine ( season) 2025 09/13/2023, 11/01/2022, 04/20/2022, Additional history exists HIV Screening Discontinued 03/24/2025 Hepatitis C Virus Screening Discontinued 03/24/2025 Hepatitis B Vaccines Discontinued Pneumococcal Vaccine: Pediatric (0-5 Years) and At-Risk Patients (6 to 49 Years) Aged Out No longer eligible based on patient's age to complete this topic RSV Vaccine 60 years and older and Patients (No Doses Required) Completed Procedures Procedure Name Priority Date/Time Associated Diagnosis Comments ANTIBODY SCREEN, REFLEX ID Routine 03/24/2025 12:25 PM EDT Amenorrhea Positive test ABO/RH Routine 03/24/2025 12:25 PM EDT Amenorrhea Positive test VARICELLA ZOSTER (VZV) ANTIBODY IGG Routine 03/24/2025 12:25 PM EDT Positive test Exposure to varicella HEMOGLOBINOPATHY EVALUATION Routine 03/24/2025 12:25 PM EDT Amenorrhea Positive test RUBELLA ANTIBODY IGG (MARTINIQUAIS MEASLES) Routine 03/24/2025 12:25 PM EDT Amenorrhea Positive test URINALYSIS WITH MICROSCOPIC Routine 03/24/2025 12:25 PM EDT Amenorrhea Positive test PAIN MANAGEMENT, FENTANYL, WITH CONFIRMATION, URINE Routine 03/24/2025 12:25 PM EDT Amenorrhea Positive test Screening for substance abuse DRUG TOX MONITORING 9 W/CONF, URINE Routine 03/24/2025 12:25 PM EDT Amenorrhea Positive test Screening for substance abuse SYPHILIS EUSEBIO REFLEX RPR TITER & TPPA Routine 03/24/2025 12:25 PM EDT Amenorrhea Positive test Screen for sexually transmitted diseases HIV 1/2 AG/AB CMIA REFLEX TO CONFIRMATION Routine 03/24/2025 12:25 PM EDT Amenorrhea Positive test Screen for sexually transmitted diseases HEPATITIS C VIRUS (HCV) ANTIBODY Routine 03/24/2025 [...] 03/24/2025 12:25 PM EDT Amenorrhea Positive test POCT , URINE (CHARGE) Routine 03/24/2025 11:36 AM EDT Amenorrhea Positive test from Last 3 Months Results * Pain Management, Fentanyl, With Confirmation, Urine (Q [id number]) (03/24/2025 12:25 PM EDT) Fentanyl, Urine NEGATIVE <0.5 ng/mL [facility] Notes and Comments Q [facility] Comment: This drug testing is for medical treatment only. Analysis was performed as non-forensic testing and these results should be used only by healthcare providers to render diagnosis or treatment, or to monitor progress of medical conditions. LDT Notes: Confirmation tests were developed and their analytical performance characteristics have been determined by [facility]. It has not been cleared or approved by the FDA. This assay has been validated pursuant to the CLIA regulations and is used for clinical purposes. Healthcare Providers needing Interpretation assistance, please contact us at [phone] ( ) M-F, 8am to 10pm EST Urine Urine specimen obtained by clean catch procedure / Unknown 03/24/2025 12:25 PM EDT 03/24/2025 12:25 PM EDT Narrative [facility] - 03/26/2025 6:48 AM EDT FASTING:NO FASTING: NO us Ricco Lares MD URINE ORDERABLES Final Result [facility] [address] [place] [phone] * HEMOGLOBINOPATHY EVALUATION (03/24/2025 12:25 PM EDT) [facility] Red Blood Cell Count 4.05 3.80 - 5.10 Million/u L [facility] Hemoglobin 11.8 11.7 - 15.5 g/dL [facility] Hematocrit 36.5 35.0 - 45.0 % [facility] MCV 90.1 80.0 - 100.0 fL [facility] MCH 29.1 27.0 - 33.0 pg [facility] RDW 13.2 11.0 - 15.0 % [facility] HGB A 97.7 >96.0 % [facility] Hgb F <1.0 <2.0 % [facility] Hgb A2 2.3 2.0 - 3.2 % [facility] Hgb Interpretation [facility] Comment: Normal phenotype. Blood Blood specimen / Unknown 03/24/2025 12:25 PM EDT 03/24/2025 12:25 PM EDT Narrative [facility] - 03/26/2025 6:48 AM EDT FASTING:NO FASTING: NO us Ricco Lares MD LAB BLOOD ORDERABLES Final Re sult [facility] [address] [place] [phone] * Drug Tox Monitoring 9 w/Conf, Urine (Q [id number]) (03/24/2025 12:25 PM EDT) [facility] Amphetamines NEGATIVE <500 ng/mL [facility] Barbiturates, Urine NEGATIVE <300 ng/mL [facility] Benzodiazepines Urine NEGATIVE <100 ng/mL [facility] Buprenorphine, Urine NEGATIVE <5 ng/mL [facility] Cocaine, Semi-Quant NEGATIVE <150 ng/mL [facility] Heroin Metabolite NEGATIVE <10 ng/mL [facility] Marijuana Metabolite, 20 NEGATIVE <20 ng/mL [facility] MDMA/MDA NEGATIVE <500 ng/mL [facility] Methadone NEGATIVE <100 ng/mL [facility] Opiates Ur Ql NEGATIVE <100 ng/mL [facility] Oxycodone NEGATIVE <100 ng/mL [facility] Phencyclidine NEGATIVE <25 ng/mL [facility] Comment [facility] Comment: See Note 1 Note 1 This drug testing is for medical treatment only. Analysis was performed as non-forensic testing and these results should be used only by healthcare providers to render diagnosis or treatment, or to monitor progress of medical conditions. For assistance with interpreting these drug results, please contact a [facility] Toxicology Specialist: [phone] ( ), M-F, 8am-6pm EST. Urine Urine specimen obtained by clean catch procedure / Unknown 03/24/2025 12:25 PM EDT 03/24/2025 12:25 PM EDT Narrative [facility] - 03/26/2025 6:48 AM EDT FASTING:NO FASTING: NO Ricco Lares MD URINE ORDERABLES Final Result [facility] [address] [place] [phone] * Antibody Screen, Reflex ID (03/24/2025 12:25 PM EDT) Antibody Screen, RBC w/Refl ID, Titer & Ag NO ANTIBODIES DETECTED [facility] Comment: Reference range No antibodies detected This [...] ORDERABLES Fi nal Result Performing Organization Address [facility] Co de Phone Number [facility] [address] [place] [phone] * Syphilis EUSEBIO reflex RPR Titer & TPPA (03/24/2025 12:25 PM EDT) Syphilis EUSEBIO NEGATIVE NEGATIVE [facility] Comment: No antibodies to T. pallidum (the agent causing syphilis) were detected in the specimen. This result, however, does not exclude very recent T. pallidum infection; testing of a second specimen, collected 2-4 weeks after this specimen, is recommended if the index of suspicion for recent infection is high. Blood Blood specimen / Unknown 03/24/2025 12:25 PM EDT 03/24/2025 12:25 PM EDT Narrative [facility] - 03/26/2025 6:48 AM EDT FASTING:NO FASTING: NO Ricco Lares MD LAB BLOOD ORDERABLES Final Re sult Performing Organization Address [facility] de Phone Number [facility] [address] [place] [phone] * HIV 1/2 Ag/Ab CMIA Reflex to Confirmation (03/24/2025 12:25 PM EDT) Pathologist [facility] HIV Final Interpretation HIV NEGATIVE [facility] Comment: HIV-1 antigen and HIV-1/HIV-2 antibodies were not detected. There is no laboratory evidence of HIV infection. HIV Ag/Ab, 4th Gen NON-REACTIV E NON-REAC TIVE [facility] Blood Blood specimen / Unknown 03/24/2025 12:25 PM EDT 03/24/2025 12:25 PM EDT Narrative [facility] - 03/26/2025 6:48 AM EDT FASTING:NO FASTING: NO Ricco Lares MD LAB BLOOD ORDERABLES Final Re sult Performing Organization Address [facility] Co de Phone Number [facility] [address] [place] [phone] * (ABNORMAL) Hepatitis B Virus Surface Antibody, Quantitative (03/24/2025 12:25 PM EDT) Pathologist [facility] Hepatitis B Surface Ab (Quant) <5(L) > OR = 10 mIU/mL [facility] Comment: PATIENT DOES NOT HAVE IMMUNITY TO HEPATITIS B VIRUS. For additional information, please refer to http://MEDEM.Raidarrr/faq/BHN397 (This link is being provided for informational/ educational purposes only). Blood Blood specimen / Unknown 03/24/2025 12:25 PM EDT 03/24/2025 12:25 PM EDT Narrative [facility] - 03/26/2025 6:48 AM EDT FASTING:NO FASTING: NO Ricco Lares MD LAB BLOOD ORDERABLES Final Re sult Performing Organization Address [facility] de Phone Number [facility] [address] [place] [phone] * HEPATITIS B VIRUS (HBV) SURFACE ANTIGEN SCREEN, REFLEX CONFIRMATION (03/24/2025 12:25 PM EDT) Pathologist [facility] Hepatitis B Surface Ag Screen NON-REACT DIANE NON-REACT DIANE [facility] Comment: For additional information, please refer to http://Sunovia/faq/KER931 (This link is being provided for informational/ educational purposes only.) Blood Blood specimen / Unknown 03/24/2025 12:25 PM EDT 03/24/2025 12:25 PM EDT Narrative [facility] - 03/26/2025 6:48 AM EDT FASTING:NO FASTING: NO us Ricco Lares MD LAB BLOOD ORDERABLES Final Re sult Performing Organization Address [facility] Co de Phone Number [facility] [address] [place] [phone] * Complete Blood Count, with Differential (03/24/2025 12:25 PM EDT) [facility] White Blood Cell Count 10.7 3.8 - 10.8 Thousand/u L [facility] Red Blood Cell Count 4.05 3.80 - 5.10 Million/uL [facility] Hemoglobin 11.8 11.7 - 15.5 g/dL [facility] Hematocrit 36.5 35.0 - 45.0 % [facility] MCV 90.1 80.0 - 100.0 fL [facility] MCH 29.1 27.0 - 33.0 pg [facility] MCHC 32.3 32.0 - 36.0 g/dL [facility] Comment: For adults, a slight decrease in the calculated MCHC value (in the range of 30 to 32 g/dL) is most likely not clinically significant; however, it should be interpreted with caution in correlation with other red cell parameters and the patient's clinical condition. RDW 13.2 11.0 - 15.0 % [facility] Platelet Count 362 140 - 400 Thousand/u L [facility] MPV 9.6 7.5 - 12.5 fL [facility] Abs Neutrophils Auto 7,747 1,500 - 7,800 cells/uL [facility] Abs Lymphocytes Auto 2,172 850 - 3,900 cells/uL [facility] Abs Monocytes Auto 696 200 - 950 cells/uL [facility] Abs Eosinophils Auto 54 15 - 500 cells/uL [facility] Abs Basophils Auto 32 0 - 200 cells/uL [facility] Neutrophils Auto 72.4 % [facility] Lymphocytes Auto 20.3 % [facility] Monocytes Auto 6.5 % [facility] Eosinophils Auto 0.5 % [facility] Basophils Auto 0.3 % [facility] Blood Blood specimen / Unknown 03/24/2025 12:25 PM EDT 03/24/2025 12:25 PM EDT Narrative [facility] - 03/26/2025 6:48 AM EDT FASTING:NO FASTING: NO Ricco Lares MD LAB BLOOD ORDERABLES Final Re sult Performing Organization Address [facility] Co de Phone Number [facility] [address] [place] [phone] * HEPATITIS C VIRUS (HCV) ANTIBODY (03/24/2025 12:25 PM EDT) Hepatitis C Antibody NON-REACT DIANE NON-REACT DIANE [facility] Comment: HCV antibody was non-reactive. There is no laboratory evidence of HCV infection. In most cases, no further action is required. However, if recent HCV exposure is suspected, a test for HCV RNA (test code 24729) is suggested. For additional information please refer to http://MEDEM.Raidarrr/faq/ISO45i6 (This link is being provided for informational/ educational purposes only.) Blood Blood specimen / Unknown 03/24/2025 12:25 PM EDT 03/24/2025 12:25 PM EDT Narrative [facility]omes[facility] - 03/26/2025 6:48 AM EDT FASTING:NO FASTING: NO Ricco Lares MD LAB BLOOD ORDERABLES Final Re sult Performing Organization Address [facility] Co de Phone Number [facility] [address] [place] [phone] * HEPATITIS B VIRUS (HBV) CORE ANTIBODY TOTAL (03/24/2025 12:25 PM EDT) Pathologist [facility] Hepatitis B Core Antibody Total NON-REACT DIANE NON-REACT DIANE [facility] Comment: For additional information, please refer to http://MEDEM.Raidarrr/faq/WNV665 (This link is being provided for informational/ educational purposes only.) Blood Blood specimen / Unknown 03/24/2025 12:25 PM EDT 03/24/2025 12:25 PM EDT Narrative [facility] - 03/26/2025 6:48 AM EDT FASTING:NO FASTING: NO Ricco Lares MD LAB BLOOD ORDERABLES Final Re sult Performing Organization Address [facility] de Phone Number [facility] [address] [place] [phone] * ABO/RH (03/24/2025 12:25 PM EDT) Pathologist [facility] ABO Group A [facility] Rh Type RH(D) POSITIVE [facility] Comment: For additional information, please refer to http://education.Freespee/faq/TBD338 (This link is being provided for informational/ educational purposes only.) Blood Blood specimen / Unknown 03/24/2025 12:25 PM EDT 03/24/2025 12:25 PM EDT Narrative [facility] - 03/26/2025 6:48 AM EDT FASTING:NO FASTING: NO Ricco Lares MD BLOOD BANK TEST ORDERABLES Fi nal Result Performing Organization Address [facility] de Phone Number [facility] [address] [place] [phone] * RUBELLA ANTIBODY, IGG (MARTINIQUAIS MEASLES) (03/24/2025 12:25 PM EDT) [facility] Rubella Antibody IgG 3.64 Index [facility] Comment: Index Interpretation ----- <0.90 Not consistent [...] ORDERABLES Final Re sult Performing Organization Address [facility] Co de Phone Number [facility] [address] [place] [phone] * Urinalysis with Microscopic (03/24/2025 12:25 PM EDT) Color YELLOW YELLOW [facility] Clarity CLEAR CLEAR [facility] Specific [place] 1.012 1.001 - 1.035 [facility] pH 7.0 5.0 - 8.0 [facility] Glucose, Urine, Random NEGATIVE NEGATIVE [facility] Bilirubin NEGATIVE NEGATIVE [facility] Ketones NEGATIVE NEGATIVE [facility] Blood NEGATIVE NEGATIVE [facility] Protein NEGATIVE NEGATIVE [facility] Nitrite NEGATIVE NEGATIVE [facility] Leukocyte Esterase NEGATIVE NEGATIVE [facility] WBC NONE SEEN < OR = 5 /HPF [facility] RBC NONE SEEN < OR = 2 /HPF [facility] Squamous Epithelial Cells 0-5 < OR = 5 /HPF [facility] Bacteria NONE SEEN NONE SEEN /HPF [facility] Hyaline Cast NONE SEEN NONE SEEN /LPF [facility] Note [facility] Comment: This urine was analyzed for the presence of WBC, RBC, bacteria, casts, and other formed elements. Only those elements seen were reported. Urine Urine specimen obtained by clean catch procedure / Unknown 03/24/2025 12:25 PM EDT 03/24/2025 12:25 PM EDT Narrative [facility] - 03/26/2025 6:48 AM EDT FASTING:NO FASTING: NO us Ricco Lares MD URINE ORDERABLES Final Result [facility] [address] [place] [phone] * URINE CULTURE (03/24/2025 12:25 PM EDT) Culture SEE NOTE [facility] Comment: CULTURE, URINE, ROUTINE Micro Number: [id number] Test Status: Final Specimen Source: Urine, clean [...] FASTING:NO FASTING: NO Ricco Lares MD LAB AMB MICRO ORDERABLES Sera l Result Performing Organization Address [facility] de Phone Number [facility] [address] [place] [phone] * VARICELLA ZOSTER (VZV) ANTIBODY IGG (03/24/2025 12:25 PM EDT) [facility] Varicella Zoster Antibody (VZV) IgG 1.11 S/CO [facility] Comment: Signal to Cut-off S/CO Interpretation --------- [...] ORDERABLES Final Re sult Performing Organization Address [facility] de Phone Number [facility] [address] [place] [phone] * (ABNORMAL) POCT , Urine (03/24/2025 11:36 AM EDT) Preg Test, Ur Positive(A ) Negative Lot Number na [employer] Manager Pass Pass Urine 03/24/2025 11:3 6 AM EDT Ricco Lares MD POINT OF CARE TEST ORDERABLES Final Result from Last 3 Months Insurance Care Teams Teacher'S Assistant Relationship Specialty Start Date End Date Departed Provider, [facility] Generic PCP - General 12/18/24
--- NOTE | 2025-03-29 19:03 | ED.NAVMDI ---
HPI - Nausea/Vomiting/Diarrhea General Chief complaint: Nausea/Vomiting/Diarrhea Stated complaint: vomiting, ? 7 wks Time Seen by Provider: 03/29/25 18:29 History of Present Illness HPI Narrative: Patient is a 19-year-old female first-time last menstrual period was on February 06. Complaining of nausea vomiting not feeling well low abdominal pain. Patient from home. No fever no chills. No flank pain. Unable to tolerate good amount of p.o.. Came to the ED for help. Never had an ultrasound for this unsure about her blood type. Patient from home Related Data Previous Rx's ?Medication ?Instructions ?Recorded nitrofurantoin 100 mg PO Q12H 7 days #14 caps 03/29/25 monohydrate/macrocrystals 100 mg capsule (Macrobid) ondansetron 4 mg disintegrating 4 mg PO TID PRN nausea and 03/29/25 tablet vomiting 5 days #10 tabs Allergies Allergy/AdvReac Type Severity Reaction Status Date / Time No Known Allergies Allergy Verified 03/29/25 17:47 Review of Systems Review of Systems: Positive nausea positive vomiting Yes all other systems are reviewed and are negative [facility] Past Medical History Attestation statement: The following information was validated with the patient. Social History Social History Advance Directives: No Advance Directives Information Provided: No Do you have a plan to hurt others: No Plan Physical Exam Exam: Exam: Appearance: Alert. Oriented X3. No acute distress. Eyes: Pupils equal, round and reactive to light. ENT: Pharynx normal. Neck: Normal inspection. Neck supple. No lymph nodes noted. No crepitus CVS: Normal heart rate and rhythm. Pulses normal. Normal S1 and S2 Respiratory: No respiratory distress. Breath sounds normal. No Wheezing. No rales Abdomen: Soft and nontender. No rigidity. No distention. good BS x4 Skin: Skin warm and dry. Normal skin color. Normal skin turgor. Extremities: No lower extremity edema. Neurovascular intact to all extremities. No Lacerations. No Rash Neuro: Oriented X 3. No motor deficit. No sensory deficit. Moving all extermities. No slurred speech Vital Signs: Vital Signs: Last Vital Signs Temp 97.4 F 03/29/25 17:46 Pulse 89 03/29/25 17:46 Resp 18 03/29/25 17:46 BP 125/58 L 03/29/25 17:46 Pulse Ox 97 03/29/25 17:46 O2 Del Method Room Air 03/29/25 17:46 BMI result Body Mass Index 34.5 Medications Administered Discontinued Medications Generic Name Dose Route Start Last Admin Trade Name Areli PRN Reason Stop Dose Admin Ceftriaxone Sodium 1 gm 03/29/25 19:01 03/29/25 19:48 Ceftriaxone Sodium 1 Gm Vial IVPUSH 03/29/25 19:02 1 gm ONCE ONE Administration Sodium Chloride 1,000 mls @ 999 mls/hr 03/29/25 19:00 03/29/25 19:47 Ns IV 03/29/25 20:00 999 mls/hr .Q1H1M ILDA Administration Sodium Chloride 1,000 mls @ 999 mls/hr 03/29/25 19:00 03/29/25 19:48 Ns IV 03/29/25 20:00 999 mls/hr .Q1H1M ILDA Administration Ondansetron HCl 4 mg 03/29/25 19:00 03/29/25 19:47 Ondansetron Hcl 4 Mg/2 Ml Vial IVPUSH 03/29/25 19:01 4 mg ONCE ONE Administration Medical Decision Making Medical Decision Making MDM Narrative: Decreased p.o. intake for the last 2 days extreme nausea vomiting. Lasts from sharp. Was February 06 patient's beta hCG came back at over 100,000. Will get an ultrasound to prove it is an intrauterine . Patient's urine also shows significant amount of ketones with a UTI. Cultures obtained. IV fluids ordered. There is no CVA tenderness nevertheless a dose of Rocephin was given. Explained to family and patient risk of dehydration greater than the risk of the Zofran at this point will give a dose of the Zofran. Patient agrees. Differential Diagnosis Differential Diagnoses: The differential diagnosis associated with the presentation includes Urinary tract infection, hyperemesis, dehydration Lab Data 03/29/25 17:55 03/29/25 17:55 Labs: Lab Results 03/29/25 03/29/25 03/29/25 Range/Units 17:55 18:00 19:22 WBC 10.7 (4.8-10.8) X10*3/uL RBC 4.09 L (4.20-5.50) X10*6/uL Hgb 12.1 (12.0-16.0) g/dl Hct 34.8 L (37.0-47.0) % MCV 85.1 (80.0-98.0) fL MCH 29.6 (27.0-33.0) pg MCHC 34.8 (31.0-35.0) g/dl RDW 13.6 (11.0-16.0) % Plt Count 339 (160-400) X10*3/uL MPV 8.8 L (9.4-12.3) fL Immature Gran % (Auto) 0.3 (0.0-0.4) % Neut % (Auto) 77.2 H (45-73) % Lymph % (Auto) 16.8 L (20-40) % [place] % (Auto) 5.1 (2-11) % Eos % (Auto) 0.3 (0-4) % Baso % (Auto) 0.3 (0-2) % Lymph # (Auto) 1.8 (1.2-4.9) X10*3/uL [place] # (Auto) 0.6 (0.1-1.2) X10*3/uL Eos # (Auto) 0.0 (0.0-0.4) X10*3/uL Baso # (Auto) 0.0 (0.0-0.2) X10*3/uL Abs Immat Gran (auto) 0.03 (0.00-0.03) X10*3/uL Absolute Neuts (auto) 8.3 (2.0-8.3) x10*3/uL Absolute Nucleated RBC 0.000 (0.0-0.012) X10*3/uL Nucleated RBC % (auto) 0.0 (0.0-0.2) /100WBC Sodium 138 (135-145) mmol/L Potassium 3.7 (3.3-5.1) mmol/L Chloride 102 (96-108) mmol/L Carbon Dioxide 24 (22-29) mmol/L Anion Gap 16 (12-20) BUN 5 L (9-16) mg/dL Creatinine 0.59 (0.5-1.4) mg/dL Estim Creat Clear Calc 165.1 Estimated GFR > 60 Random Glucose 88 (60-115) mg/dL Lactic Acid 0.9 (0.5-2.0) mmol/L Calcium 9.6 (8.4-10.2) mg/dL Magnesium 1.8 (1.6-2.6) mg/dL Total Bilirubin 0.9 (0.0-1.0) mg/dL AST 22 (5-31) U/L ALT 20 (0-31) U/L Alkaline Phosphatase 60 (39-117) U/L Total Protein 7.6 (6.5-8.0) g/dL Albumin 4.3 (3.5-5.0) g/dL Beta HCG, Quant 438540 mIU/mL Urine Color Dark Yellow Urine Appearance Cloudy Urine pH 7.5 (5.0-9.0) Ur Specific [place] 1.025 (1.005-1.025) Urine Protein 100 (2+) H (Neg-Trace) mg/dL Urine Glucose (UA) Negative (Negative) mg/dL Urine Ketones 15 (Negative) mg/dL Urine Blood Negative (Negative) Urine Nitrite Negative (Negative) Ur Leukocyte Esterase Large (3+) H (Negative) Urine RBC 0-2 (0-2) /HPF Urine WBC >50 H (0-5) /HPF Ur Squamous Epith Cells >20 (0-2) /HPF Urine Bacteria 4+ (None Seen) Hyaline Casts 3-5 (0-2) /LPF Blood Type 03/29/25 Range/Units 19:32 WBC (4.8-10.8) X10*3/uL RBC (4.20-5.50) X10*6/uL Hgb (12.0-16.0) g/dl Hct (37.0-47.0) % MCV (80.0-98.0) fL MCH (27.0-33.0) pg MCHC (31.0-35.0) g/dl RDW (11.0-16.0) % Plt Count (160-400) X10*3/uL MPV (9.4-12.3) fL Immature Gran % (Auto) (0.0-0.4) % Neut % (Auto) (45-73) % Lymph % (Auto) (20-40) % [place] % (Auto) (2-11) % Eos % (Auto) (0-4) % Baso % (Auto) (0-2) % Lymph # (Auto) (1.2-4.9) X10*3/uL [place] # (Auto) (0.1-1.2) X10*3/uL Eos # (Auto) (0.0-0.4) X10*3/uL Baso # (Auto) (0.0-0.2) X10*3/uL Abs Immat Gran (auto) (0.00-0.03) X10*3/uL Absolute Neuts (auto) (2.0-8.3) x10*3/uL Absolute Nucleated RBC (0.0-0.012) X10*3/uL Nucleated RBC % (auto) (0.0-0.2) /100WBC Sodium (135-145) mmol/L Potassium (3.3-5.1) mmol/L Chloride (96-108) mmol/L Carbon Dioxide (22-29) mmol/L Anion Gap (12-20) BUN (9-16) mg/dL Creatinine (0.5-1.4) mg/dL Estim Creat Clear Calc Estimated GFR Random Glucose (60-115) mg/dL Lactic Acid (0.5-2.0) mmol/L Calcium (8.4-10.2) mg/dL Magnesium (1.6-2.6) mg/dL Total Bilirubin (0.0-1.0) mg/dL AST (5-31) U/L ALT (0-31) U/L Alkaline Phosphatase (39-117) U/L Total Protein (6.5-8.0) g/dL Albumin (3.5-5.0) g/dL Beta HCG, Quant mIU/mL Urine Color Urine Appearance Urine pH (5.0-9.0) Ur Specific [place] (1.005-1.025) Urine Protein (Neg-Trace) mg/dL Urine Glucose (UA) (Negative) mg/dL Urine Ketones (Negative) mg/dL Urine Blood (Negative) Urine Nitrite (Negative) Ur Leukocyte Esterase (Negative) Urine RBC (0-2) /HPF Urine WBC (0-5) /HPF Ur Squamous Epith Cells (0-2) /HPF Urine Bacteria (None Seen) Hyaline Casts (0-2) /LPF Blood Type A Positive Discharge Plan Discharge Clinical Impression: Hyperemesis arising during , UTI (urinary tract infection) Patient Disposition: Home, Self-Care Instructions: Hyperemesis Gravidarum (ED), Urinary Tract Infection in (ED) Prescriptions: New ondansetron 4 mg tablet,disintegrating 4 mg PO TID PRN (Reason: nausea and vomiting) 5 Days Qty: 10 0RF nitrofurantoin monohyd/m-cryst [Macrobid] 100 mg capsule 100 mg PO Q12H 7 Days Qty: 14 0RF Rx Instructions: must administer with a meal/food Referrals: Physician,None [Primary Care Provider, Medical] Referral Note: Follow-up with your OBGYN in the next 3 days. Use the Zofran for extreme nausea. Print Language: Romanian
[2025-03-29 21:43] VITALS: BP 105/63; PULSE 89; RESP 18; TEMP 36.9; O2SAT 100
== END 2025-03-29 21:51 | disposition home or self-care (01) ==
PROVIDERS: Physician Assistant Medical; Emergency Provider Emergency Medicine Emergency Medical Services
DX: O21.0 Mild hyperemesis gravidarum (principal); O23.41 Unspecified infection of urinary tract in pregnancy, first trimester; N39.0 Urinary tract infection, site not specified; Z3A.08 8 weeks gestation of pregnancy; R10.30 Lower abdominal pain, unspecified
CPT/HCPCS: 36415; 76817; 80053; 81001; 83605; 83735; 84702; 85025; 86900; 86901; 87040; 87086; 96361; 96374; 96375; 99284; J0696; J2405

== ENCOUNTER → 2025-03-29 19:01 | Outpatient (BNV) | payer MEDICAID, SELFPAY | PROVIDERS: Emergency Provider Emergency Medicine Emergency Medical Services; Visit Provider Student in an Organized Health Care Education/Training Program | DX: O26.891 Other specified pregnancy related conditions, first trimester (principal); Z3A.01 Less than 8 weeks gestation of pregnancy | CPT/HCPCS: 76817 ==

== ENCOUNTER 2025-06-14 19:37 | Emergency (ER) | payer MEDICAID, SELFPAY ==
--- NOTE | ~2025-06-14 | US_ITS ---
CLINICAL HISTORY: 18 wks preg, ISRA 4 30, abd cramping US OB 1st trimester transabdominal Comparison: US/SR - US OB TRANSVAGINAL - 03/29/25 19:39 EDT Findings: Single living intrauterine gestation with heart rate of 149 beats per minute. No findings of placenta abruption or previa. Normal TIFFANY. IMPRESSION: Single living intrauterine gestation with normal heart rate and no evidence of placental abruption or placenta previa. Normal TIFFANY. This document has been electronically signed by: Jameel Ayala MD on 06/14/2025 21:19:16
[2025-06-14 19:45] VITALS: BP 122/73; PULSE 98; RESP 18; TEMP 36.4; O2SAT 98; BMI 33.9
--- NOTE | 2025-06-14 19:46 | ED_ITS ---
HPI - General Adult General Chief complaint: Abdominal Pain Stated complaint: Issues/lower abd Related Data Previous Rx's ?Medication ?Instructions ?Recorded nitrofurantoin 100 mg PO Q12H 7 days #14 ca ps 03/29/25 monohydrate/macrocrystals 100 mg capsule (Macrobid) ondansetron 4 mg disintegrating 4 mg PO TID PRN nausea and 03/29/25 tablet vomiting 5 days #10 tabs Allergies Allergy/AdvReac Type Severity Reaction Status Date / Time No Known Allergies Allergy Verified 06/14/25 19:47 PMFSH Social History Social History Advance Directives: No Advance Directives Information Provided: No Do you have a plan to hurt others: No Plan Physical Exam ED Vital Signs: Vital Signs - 24 hr 06/14/25 19:45 Temperature 97.5 F Pulse Rate 98 Respiratory Rate 18 Blood Pressure 122/73 Pulse Oximetry 98 Oxygen Delivery Method Room Air BMI result Body Mass Index 33.9 Course Course Course Narrative: This is a Rapid Medical Examination (RME) performed by Gerda Galvan PA-C in triage. Full HPI, ROS, assessment and treatment plan per primary provider in the Main ED. Hx: 20 yo F , currently 18 weeks , here w/ lower abdominal cramping x today. reports abnormal vaginal discharge - appears creamy with a fishy odor. she denies any vaginal bleeding, urinary sx. she follows w/ OB [place] at [facility]. ISRA 11/13/25. had STD testing 2 wks ago - negative. Plan: labs, UA, US Reevaluation(s) Reevaluation #1: Patient left the emergency department before myself or any of the other clinicians could review or explain physical exam findings, test results, need or lack there of for additional testing, treatment options, or a treatment plan. Medical Decision Making Lab Data 06/14/25 20:11 06/14/25 20:11 Labs: Lab Results 06/14/25 Range/Units 20:11 WBC 13.0 H (4.8-10.8) X10*3/uL RBC 3.82 L (4.20-5.50) X10*6/uL Hgb 11.4 L (12.0-16.0) g/dl Hct 33.9 L (37.0-47.0) % MCV 88.7 (80.0-98.0) fL MCH 29.8 (27.0-33.0) pg MCHC 33.6 (31.0-35.0) g/dl RDW 13.3 (11.0-16.0) % Plt Count 340 (160-400) X10*3/uL MPV 9.1 L (9.4-12.3) fL Immature Gran % (Auto) 1.4 H (0.0-0.4) % Neut % (Auto) 73.3 H (45-73) % Lymph % (Auto) 18.3 L (20-40) % [place] % (Auto) 5.3 (2-11) % Eos % (Auto) 1.5 (0-4) % Baso % (Auto) 0.2 (0-2) % Lymph # (Auto) 2.4 (1.2-4.9) X10*3/uL [place] # (Auto) 0.7 (0.1-1.2) X10*3/uL Eos # (Auto) 0.2 (0.0-0.4) X10*3/uL Baso # (Auto) 0.0 (0.0-0.2) X10*3/uL Abs Immat Gran (auto) 0.18 H (0.00-0.03) X10*3/uL Absolute Neuts (auto) 9.5 H (2.0-8.3) x10*3/uL Absolute Nucleated RBC 0.000 (0.0-0.012) X10*3/uL Nucleated RBC % (auto) 0.0 (0.0-0.2) /100WBC Sodium 137 (135-145) mmol/L Potassium 3.7 (3.3-5.1) mmol/L Chloride 106 (96-108) mmol/L Carbon Dioxide 24 (22-29) mmol/L Anion Gap 11 L (12-20) BUN 5 L (9-16) mg/dL Creatinine 0.51 (0.5-1.4) mg/dL Estim Creat Clear Calc 187.5 Estimated GFR > 60 Random Glucose 97 (60-115) mg/dL Calcium 9.3 (8.4-10.2) mg/dL Total Bilirubin 0.2 (0.0-1.0) mg/dL AST 17 (5-31) U/L ALT 14 (0-31) U/L Alkaline Phosphatase 63 (39-117) U/L Total Protein 7.2 (6.5-8.0) g/dL Albumin 3.7 (3.5-5.0) g/dL Beta HCG, Quant 52165 mIU/mL Urine Color Yellow Urine Appearance Clear Urine pH 6.5 (5.0-9.0) Ur Specific [place] 1.020 (1.005-1.025) Urine Protein Negative (Neg-Trace) mg/dL Urine Glucose (UA) Negative (Negative) mg/dL Urine Ketones Trace (Negative) mg/dL Urine Blood Negative (Negative) Urine Nitrite Negative (Negative) Ur Leukocyte Esterase Moderate (2+) H (Negative) Urine RBC 0-2 (0-2) /HPF Urine WBC 21-50 H (0-5) /HPF Ur Squamous Epith Cells 11-20 (0-2) /HPF Urine Bacteria 3+ (None Seen) Hyaline Casts 0-2 (0-2) /LPF Discharge Plan Discharge Clinical Impression: Abdominal pain Patient Disposition: Left W/O Completing Treatment Prescriptions: No Action ondansetron 4 mg tablet,disintegrating 4 mg PO TID PRN (Reason: nausea and vomiting) 5 Days Qty: 10 0RF nitrofurantoin monohyd/m-cryst [Macrobid] 100 mg capsule 100 mg PO Q12H 7 Days Qty: 14 0RF Rx Instructions: must administer with a meal/food Discharge Date/Time: 06/15/25 00:09
[2025-06-14 20:16] LABS: MANUAL DIFF FLAG NO
[2025-06-14 20:34] LABS: Appearance Urine Clear; Glucose Urine UA Negative (Negative); PH 6.5 (5.0-9.0); Specific Gravity - Urine 1.020 (1.005-1.025); UMIC TRIGGER UACC YES
[2025-06-14 20:39] LABS: Hematocrit 33.9 % (37.0-47.0); Hemoglobin 11.4 g/dl (12.0-16.0); Imm Gran Abs Auto 0.18 X10*3/uL (0.00-0.03); Imm Gran Pct Auto 1.4 % (0.0-0.4); Lymphocytes Absolute Auto 2.4 X10*3/uL (1.2-4.9); Mean Corpuscular HGB Conc 33.6 g/dl (31.0-35.0); Mean Corpuscular Hemoglobin 29.8 pg (27.0-33.0); Mean Corpuscular Volume 88.7 fL (80.0-98.0); NRBC Abs Auto 0.000 X10*3/uL (0.0-0.012); NRBC Pct Auto 0.0 /100WBC (0.0-0.2); Platelet Count 340 X10*3/uL (160-400); Red Blood Count 3.82 X10*6/uL (4.20-5.50); UACC Culture Trigger YES; White Blood Count 13.0 X10*3/uL (4.8-10.8)
[2025-06-14 20:42] LABS: Alanine Aminotransferase 14 U/L (0-31); Albumin Level 3.7 g/dL (3.5-5.0); Alkaline Phosphatase 63 U/L (39-117); Anion Gap 11 (12-20); Aspartate Amino Transferase 17 U/L (5-31); Blood Urea Nitrogen 5 mg/dL (9-16); Calcium 9.3 mg/dL (8.4-10.2); Carbon Dioxide 24 mmol/L (22-29); Chloride 106 mmol/L (96-108); Creatinine Clr Calc Pharmacy 187.5; Estimated Glomerular Filt Rate > 60; Potassium 3.7 mmol/L (3.3-5.1); Sodium 137 mmol/L (135-145); Total Protein 7.2 g/dL (6.5-8.0)
--- OUTSIDE RECORDS SUMMARY | 2025-06-15 00:10 | XMS_ITS | Clinical Summary ---
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 Name Role Phone Unavailable Primary Care Provider Unavailabl e Allergies No known active allergies Medications No known medications Encounters Date Type Department Care Team Description 05/02/2025 11:03 PM EDT - 05/03/2025 2:02 AM EDT Emergency [facility] [address] [place], [place] [id number] Suprapubic pain (Primary Dx); 12 weeks gestation of Discharge Disposition: Home or Self Care from Last 3 Months Social History Tobacco Use Types Packs/Day Years Used Date Smoking Tobacco: Never Assessed Comments Unknown Sex and Gender Information Value Date Recorded Sex Assigned at Not on file Legal Sex Female 8:51 PM EDT Gender Identity Not on file Sexual Orientation Not on file Last Filed Vital Signs Vital Sign Reading Time Taken Comments Blood Pressure 116/72 05/02/2025 9:07 PM EDT Pulse 84 05/02/2025 9:07 PM EDT Temperature 36.8 C (98.2 F) 05/02/2025 9:07 PM EDT Respiratory Rate 18 05/02/2025 9:07 PM EDT Oxygen Saturation 98% 05/02/2025 9:07 PM EDT Inhaled Oxygen Concentration - - Weight 91.1 kg (200 lb 13.4 oz) 05/02/2025 9:07 PM EDT Height - - Body Mass Index - - Plan of Treatment Health Maintenance Due Date Last Done Comments MMR Vaccines (1 of 1 - Standard series) 2004 DTaP/TDaP Vaccines (2 - Td or Tdap) 08/14/2014 07/17/2014 HIV screening 2016 Varicella Vaccines (1 of 2 - 13+ 2-dose series) 2016 Meningococcal B Vaccine (1 of 2 - Standard) 2019 Chlamydia screening 2020 Hepatitis C screening 2021 Hepatitis B vaccine series (1 of 3 - 19+ 3-dose series) 2022 HPV vaccine series (3 - 3-dose series) 12/06/2023 09/13/2023, 11/01/2022 Tetanus adult (Td q 10,TDAP once) 07/17/2024 07/17/2014 Influenza vaccine 02/14/2025 Covid-19 vaccine series ( season) 2025 09/13/2023, 11/01/2022, 04/20/2022, Additional history exists Cervical cancer screening 04/07/2028 04/07/2025 RSV Immunization (1 - 1-dose 75+ series) 2078 HIB Vaccines Aged Out No longer eligi ble based on patient's age to complete this topic Hepatitis A Vaccines Aged Out No long er eligible based on patient's age to complete this topic IPV Vaccines Aged Out No longer eligi ble based on patient's age to complete this topic Meningococcal Vaccine Aged Out No bry margot eligible based on patient's age to complete this topic Pneumococcal Vaccine (2 - 49 years) Aged Out No longer eligible based on patient's age to complete this topic Rotavirus Vaccines Aged Out No longer eligible based on patient's age to complete this topic Procedures Procedure Name Priority Date/Time Associated Diagnosis Comments ED DIAGNOSTIC FOCUSED TRANSABDOMINAL PELVIS - STAT 05/03/2025 12:24 AM EDT URINE MICROSCOPIC (BH GH LMW YH) Routine 05/02/2025 11:42 PM EDT URINALYSIS-MACROSCOPIC W/REFLEX MICROSCOPIC STAT 05/02/2025 11:42 PM EDT from Last 3 Months Results * ED Transabdominal Pelvis - Ultrasound (05/03/2025 12:24 AM EDT) Narrative [id number] - 05/03/2025 12:24 AM EDT DISCLAIMER This procedure captures images only. There is no report. us Anne-Marie FUENTES IM US ORDERABLES Final Resul t [id number] * (ABNORMAL) Urine microscopic ( GH LMW YH) (05/02/2025 11:42 PM EDT) RBC/HPF, UA 4(H) 0 - 2 /HPF 05/02/2025 11:58 PM EDT [facility] WBC/HPF, UA 2 0 - 5 /HPF 05/02/2025 11:58 PM EDT [facility] Bacteria, UA Rare None-Rare /HPF 05/02/2025 11:58 PM EDT [facility] Urine Squamous Epithelial Cells, UA 1 0 - 5 /HPF 05/02/2025 11:58 PM EDT [facility] Urine URINE SPECIMEN OBTAINED BY CLEAN CATCH PROCEDURE / Unknown Collection / Unknown 05/02/2025 11:42 PM EDT 05/02/2025 11:51 PM EDT us Anne-Marie FUENTES URINE ORDERABLES Final Result Performing Organization Address City/[facility] Co de Phone Number + [facility] [address] [place] [address] * (ABNORMAL) Urinalysis-macroscopic w/reflex microscopic (05/02/2025 11:42 PM EDT) Clarity, UA Clear Clear 05/02/2025 11:53 PM EDT [facility] Color, UA Yellow Yellow, Colorless 05/02/2025 11:53 PM EDT [facility] Specific [place], UA 1.027 1.005 - 1.030 05/02/2025 11:53 PM EDT [facility] pH, UA 6.0 5.5 - 7.5 05/02/2025 11:53 PM EDT [facility] Protein, UA Negative Negative, Trace 05/02/2025 11:53 PM EDT [facility] Glucose, UA Negative Negative 05/02/2025 11:53 PM EDT [facility] Ketones, UA 1+(A) Negative 05/02/2025 11:53 PM EDT [facility] Blood, UA Negative Negative 05/02/2025 11:53 PM EDT [facility] Bilirubin, UA Negative Negative 05/02/2025 11:53 PM EDT [facility] Leukocytes, UA 1+(A) Negative 05/02/2025 11:53 PM EDT [facility] Nitrite, UA Negative Negative 05/02/2025 11:53 PM EDT [facility] Urobilinogen, UA <2.0 <=2.0 mg/dL 05/02/2025 11:53 PM EDT [facility] Urine URINE SPECIMEN OBTAINED BY CLEAN CATCH PROCEDURE / Unknown Collection / Unknown 05/02/2025 11:42 PM EDT 05/02/2025 11:51 PM EDT Anne-Marie FUENTES URINE ORDERABLES Final Result L + [facility] [address] [place] [address] from Last 3 Months Insurance [place]
--- OUTSIDE RECORDS SUMMARY | 2025-06-15 00:10 | XMS_ITS | Encounter Summary ---
Author Organization [facility] Address [address] [place] [address] Care Team Providers Care Space Control Agent Name Role Phone Tanvi Anthony DAPHNE Primary Care Provider [phone] Encounter Details Date Type Department Care Team (Late st Contact Info) Description 04/08/2025 Scanned Document [facility] [address] [facility] [address] [place] [address] Provider, [place], [address] [place] [address] Social History Tobacco Use Types Packs/Day Years Used Date Smoking Tobacco: Never Smokeless Tobacco: Never Alcohol Use Standard Drinks/Week Comments Not Currently 0 (1 standard drink = 0.6 oz pur e alcohol) not while [facility] Utilities Answer Date Recorded In the past 12 months has e electric, gas, oil, or water company threatened to shut off services in your home? No 03/30/2025 Social Connection and Isolation Panel Answer Date Recorded In a typical week, how many times do you talk on the phone with family, friends, or neighbors? More than three times a week 03/30/2025 Frequency of Social Gatherin gs with Friends and Family Not on file 03/30/2025 Attends Rastafarian Services Not on file 03/30 Active Member of Clubs or Organizations Not on f ile 03/30/2025 Attends Club or Organization Meetings Not on therese e 03/30/2025 Marital Status Not on file 03/30/2025 AUDIT-C Answer Date Recorded Q1: How often do you have a drink containing alc ohol? Never 03/30/2025 Average Number of Drinks Not on file 025 Frequency of Binge Drinking Not on file 03/17 Overall Financial Resource Strain (CARDIA) Answe r Date Recorded How hard is it for you to pa y for the very basics like food, housing, medical care, and heating? Patient declined 09/12/2023 PHQ-2 Answer Date Recorded PHQ-2 Total Score 0 03/30/2025 [facility] - Occupational Stress Questionnaire Answer Date Recorded [...] the money to buy more. Never true 03/30/20 25 Within the past 12 months, t he food you bought just didn't last and you didn't have money to get more. Never true 03/30/2025 PRAPARE - Transportation Answer Date Re corded In the past 12 months, has l ack of transportation kept you from medical appointments or from getting medications? No 03/17 In the past 12 months, has l ack of transportation kept you from meetings, work, or from getting things needed for daily living? No 03/30/2025 Housing Stability Vital Sign Answer Chadd e Recorded In the last 12 months, was t here a time when you were not able to pay the mortgage or rent on time? No 03/30/2025 In the past 12 months, how m any times have you moved where you were living? 0 03/30/2025 At any time in the past 12 m [facility], were you homeless or living in a senior living (including now)? No 03/30/2025 Physical Activity Answer Date Recorded On average, how many days pe r week do you engage in moderate to strenuous exercise (like a brisk walk)? 0 days 03/30/2025 On average, how many minutes do you exercise per day at this level? 0 min 03/30/2025 Education Answer Date Recorded What is the [...] as of this encounter Plan of Treatment Not on file documented as of this encounter Visit Diagnoses Not on filedocumented in this encounter Care Teams Space Control Agent Relationship Specialty Start Date End Date Tanvi Anthony APRN [address] [place] [address] PCP - General Internal Medicine 04/01/25 documented as of this encounter
--- OUTSIDE RECORDS SUMMARY | 2025-06-15 00:10 | XMS_ITS | Clinical Summary ---
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 Any generic covered by insurance is ok. 90 tablet 3 5 Active proMETHAZINE (PHENERGAN) 12.5 MG tabletIndications: Nausea/vomiting in Take 1 tablet (12.5 mg total) by mouth 4 times daily (every 6 hours) as needed for nausea or vomiting. 20 tablet 1 5 Active ondansetron (ZOFRAN-ODT) 4 MG disintegrating tabletIndications: Nausea/vomiting in Take 1 tablet (4 mg total) by mouth 3 times daily (every 8 hours) as needed for nausea or vomiting. Place tablet on tongue to dissolve. 20 tablet 1 5 Active Active Problems Problem Noted Date Diagnosed Date OB checklist 04/07/2025 Overview (04/07/2025): First Trimester: [x] Routine labs [ ] cfDNA [ ] Carrier screen [ ] GC/CT [ ] Pap [x] Pre-eclampsia risk assessment > ASA Second Trimester: [ ] msAFP [ ] Anatomy ultrasound/L2 Third Trimester: [ ] 28wk labs [ ] GBS culture done [ ] RhoGAM Immunizations: [ ] Tdap [ ] covid [ ] flu [ ] RSV Plans: Contraception plan: Feeding plan: Mode of delivery: Timing of delivery: [ ] Delivery scheduled [ ] H&P/preop completed Offer Hep B vaccine 03/25/2025 Obesity (BMI 30-39.9) 09/13/2023 Assessment & Plan (04/05/2025 1:40 PM EDT): Early GDM screen Monitor nutrition exercise with Estimated Date of Delivery Comme nts Yes 11/13/2025 Based on last me nstrual period of 02/06/2025 Resolved Problems Problem Noted Date Diagnosed Date Resolved Date Iron deficiency anemia 09/13/202304/07 Bacterial vaginosis 11/03/2022 09/13/19 Encounters Date Type Department Care Team Description 05/28/2025 11:20 AM EST Routine CC [facility] OB [address] [place] [phone] Lauryn Falcon CNM [place]: 15w6d 04/08/2025 Scanned Document CC [facility] OB [address] [place] [phone] ProviderCarrillo MD 04/07/2025 11:30 AM EDT Initial CC [facility] OB [address] [place] [phone] Luci Nina MD [place]: 8w4d 04/01/2025 2:15 PM EDT Office Visit [facility] [address] [place] [phone] Tanvi Anthony APRN Annual physical exam (Primary Dx); Currently in first trimester with unknown gestational age; Acute cystitis without hematuria; Rash; Obesity (BMI 30-39.9); Anemia, unspecified type; Hirsutism 03/24/2025 10:50 AM EDT Clinical Support [facility] DIESEL ENGINEER [address] [place] [phone] Dede Arauz LPN Amenorrhea (Primary Dx); Positive test; Screening for diabetes mellitus; Screen for sexually transmitted diseases; Screening for substance abuse; Exposure to varicella from Last 3 Months Immunizations Immunization Administration [...] 0.6 oz pur e alcohol) not while [facility] Utilities Answer Date Recorded In the past 12 months has [employer], gas, oil, or water [employer] threatened to shut off services in your home? No 03/30/2025 Social Connection and Isolation Panel Answer Date Recorded In a typical week, how many times do you talk on the phone with family, friends, or neighbors? More than three times a week 03/30/2025 Frequency of Social Gatherin gs with Friends and Family Not on file 03/30/2025 Attends [employer] Not on file 03/30 Active Member [...] Date Recorded PHQ-2 Total Score 0 03/30/2025 [facility] - Occupational Stress [...] any time in the past 12 m [facility], were you homeless or living in a halfway (including now)? No 03/30/2025 Physical Activity Answer [...] Sign Reading Time Taken Comments Blood Pressure 118/80 05/28/2025 11:39 AM EST Pulse 96 05/28/2025 11:39 AM EST Temperature 36.2 C (97.2 F) 04/01/2025 2:14 PM EDT Respiratory Rate 16 04/01/2025 2:14 PM EDT Oxygen Saturation 99% 04/07/2025 11:48 AM EDT Inhaled Oxygen Concentration - - Weight 87.1 kg (192 lb) 05/28/2025 11:39 AM EST Height 163.8 cm (5' 4.5 ) 04/01/2025 2:14 PM EDT Body Mass Index 32.45 04/01/2025 2:14 PM EDT Plan of Treatment Health Maintenance Due Date Last Done Comments HPV Vaccines (3 - 3-dose series) 12/06/2023 09/13/2023, 11/01/2022 DTaP/Tdap/Td Vaccines (2 - Td or Tdap) 07/17/2024 07/17/2014 Influenza Vaccine 02/14/2025 COVID-19 Vaccine ( season) 2025 09/13/2023, 11/01/2022, 04/20/2022, Additional history exists Physical 04/01/2028 04/01/2025, 08/18, 08/24/2022 Pap Smear (Ages 21-65) 04/07/2028 04/07/2025 HIV Screening Discontinued 03/24/2025 Hepatitis C Virus Screening Discontinued 03/24/2025 Hepatitis B Vaccines Discontinued Pneumococcal Vaccine: Pediatric (0-5 Years) and At-Risk Patients (6 to 49 Years) Aged Out No longer eligible based on patient's age to complete this topic RSV Vaccine 50 years and older and Patients (No Doses Required) Completed Procedures Procedure Name Priority Date/Time Associated Diagnosis Comments ALPHA-FETOPROTEIN (AFP), MATERNAL Routine 05/29/2025 12:20 PM EST Encounter for supervision of normal first in second trimester QHERIT(TM) EXPANDED CARRIER SCREEN Routine 05/29/2025 12:20 PM EST Encounter for supervision of normal first in first trimester QNATAL ADVANCED Routine 05/29/2025 12:20 PM EST Encounter for supervision of normal first in first trimester HX OB ULTRASOUND RECORD Routine 04/07/20 1:06 PM EDT THINPREP PAP TEST (COYOTE HUNTER) WITH HPV REFLEX, GC/CT Routine 04/07/2025 11:43 AM EDT Encounter for supervision of normal first in first trimester Screening examination for venereal disease Special screening examination for human papillomavirus (HPV) ANTIBODY SCREEN, REFLEX ID Routine 03/24/2025 12:25 PM EDT Amenorrhea Positive test ABO/RH Routine 03/24/2025 12:25 PM EDT Amenorrhea Positive test VARICELLA ZOSTER (VZV) ANTIBODY IGG Routine 03/24/2025 12:25 PM EDT Positive test Exposure to varicella HEMOGLOBINOPATHY EVALUATION Routine 03/24/2025 12:25 PM EDT Amenorrhea Positive test RUBELLA ANTIBODY IGG (ENGLISH MEASLES) Routine 03/24/2025 12:25 PM EDT Amenorrhea [...] Positive test Screen for sexually transmitted diseases HEMOGLOBIN A1C Routine 03/24/2025 12:25 PM EDT Amenorrhea Positive test Screening for diabetes mellitus COMPLETE BLOOD COUNT, WITH DIFFERENTIAL Routine 03/24/2025 12:25 PM EDT Amenorrhea Positive test URINE CULTURE Routine 03/24/2025 12:25 PM EDT Amenorrhea Positive test POCT , URINE (CHARGE) Routine 03/24/2025 11:36 AM EDT Amenorrhea Positive test from Last 3 Months Results * QHERIT??? Expanded Carrier Screen (05/29/2025 12:20 PM EST) Ethnicity: H [employer] [facility], Overall Interpretation SEE NOTE [employer], Comment: NEGATIVE FOR ALL VARIANTS TESTED (SEE BELOW) Negative Summary Statement SEE NOTE [employer] [facility], Comment: This carrier test includes sequencing and targeted analysis of the specific variants listed. In some cases, this individual's risk to have a child affected with the diseases tested is reduced based on a negative result. Sensitivity and utility of testing depends largely upon the individual's ethnic background. While negative results may indicate a reduced carrier risk for some or all diseases tested, this risk cannot be eliminated. Please refer to the Residual Risk Table(s) for selected residual carrier risks after a negative result. Fragile X CGG Repeats SEE NOTE [employer] [facility], Comment: Fragile X: FEMALE, two alleles with 30 CGG repeats in the FMR1 gene detected (NEGATIVE) SMN1 2 COPIES [employer] [facility], 2+0 Risk Variant NOT DETECTED [employer] [facility], SMA Interpretation NEGATIVE Q [employer] [facility], Comment: INTERPRETATION: This analysis identified two (2) copies of the SMN1 gene. The g.91970L>G variant was not detected (NEGATIVE). The revised carrier risk for an individual with two (2) copies of the SMN1 gene and the absence of the g.14421C>G variant is dependent on ethnicity and is provided in the table below (Braulio et al., 2012. PMID: 24322953; Juventino et al., 2017. PMID: 83741742). LIMITATIONS OF ANALYSIS: This negative result does not rule out carrier status or a diagnosis of spinal muscular atrophy (SMA). This testing cannot identify all individuals who have two copies of the SMN1 gene on one chromosome and none on the opposite chromosome (silent carriers), nor does it rule out other pathogenic/likely pathogenic variants in the SMN1 gene. The risk for pathogenic/likely pathogenic variants that cause SMA other than the loss of at least exon 7 depends greatly on family history, clinical presentation and ethnicity. SMA Residual Risk RISK BELOW Q [employer] [employer] [facility], Comment: Revised carrier risk for individuals with no family history of SMA Carrier Population Detection Carrier Revised Risk/ Ethnicity Rate Risk Variant Absent 95% 1:47 1:921 Ashkenazi 93% 1:67 1:918 Protestant 94% 1:59 1:907 90% 1:72 1:375 Taiwanese 93% 1:68 1:906 Residual Risk Table SEE NOTE [employer] [facility], Comment: RESIDUAL CARRIER RISK TABLE - FOR USE ONLY AFTER RESULTS ARE NEGATIVE (ASSUMES FAMILY HISTORY IS NEGATIVE) Disease Ethnicity Detection Prior Risk Rate % Risk After Negative Result Alpha- Thalassemia Mediterranean, Up to 94 Varies Reduced [facility] Ethnicity Edita Kelsey, Afghan Beta-Hemoglobinopathies (Including Sickle Cell Disease) Mediterranean, 99 Varies Reduced [facility] , Ethnicity Edita Kelsey, Daljit George Almeida Syndrome Ashkenazi Protestant 99 07/29,301 Esa Disease Ashkenazi Protestant >97 <07/17,801 Non-Ashkenazi 50 Not Protestant known Cystic Fibrosis Ashkenazi Protestant 95 08/09461 Non- 90 08/10 Taiwanese 88 78 Taiwanese 53 Dihydrolipoamide Dehydrogenase Deficiency Ashkenazi Protestant >95 1 <07/18,121 [facility] >99 1 <3,001 Familial Hyperinsulinism [facility] 90 Fanconi Anemia [facility] 99 Fragile X Females 99 08/10, Gaucher Disease [facility] 95 07/31 1281 Glycogen Storage Disease Type Ia [facility] 95 07/17,261 51 1177 1360 Bhavya Syndrome 2 [facility] 99 07/26,601 Maple Syrup Urine Disease Ashkenazi Protestant 95 07/17,921 Mucolipidosis Type IV Ashkenazi Protestant 95 07/17,761 Nemaline Myopathy Ashkenazi Protestant >95 <07/19,341 Kimberyln-Pick Disease Types A&B Ashkenazi Protestant 97 1 07/19,801 Josh-Sachs Disease Ashkenazi Protestant 98 08/12 07/17, [facility] 70 08/16 1 General Population 46 [phone] Usher Syndrome, Type IF Ashkenazi Protestant >75 1147 <585 Usher Syndrome, Type IIIA Ashkenazi Protestant >95 <1/2,381 Walker-Warburg Syndrome Ashkenazi Protestant 99 07/23,801 Variants Tested Table SEE NOTE [facility] [place] [facility], Comment: DISEASES / VARIANTS TESTED DISEASE (GENE) [REFERENCE SEQUENCE] - VARIANTS ALPHA-THALASSEMIA (HBA1 and HBA2) [NM 735017.3 and NM 888374.4] -alpha3.7, -alpha4.2, -alpha20.5, --SEA, --MED, -THERESE, --MALIAN, [facility] (c.427T>C) BETA HEMOGLOBINOPATHIES (INCLUDING SICKLE CELL DISEASE) (HBB) [NM 731010.4] c.*111A>G, c.*110T>C, Hb D-[place] (c.364G>C), Hb O-[place] (c.364G>A), c.321 322insG, c.316-2A>C, c.316-2A>G, c.316-3C>A, c.316-106C>G, c.316-146T>G, c.316-197C>T, c.315+1G>A, c.287 288insA, c.251delG, c.230delC, c.216 217insA, c.203 204delTG, c.143 144insA, c.146 147insATCT, c.135delC, c.130G>T, c.126 129delCTTT (c.124 127delTTCT), c.118C>T, c.114G>A, c.112delT, c.93-1G>C, c.93-1G>A, c.93-21G>A, c.92+6T>C, c.92+5G>A, c.92+5G>C, c.92+5G>T, c.92+2T>A, c.92+2T>C, c.92+1G>A, c.92+1G>T, Hb Moreno (c.92G>C), c.92G>A, c.84 85insC, c.79G>T, HBE (c.79G>A), c.75T>A, c.59A>G, c.52A>T (LYS17*), c.51delC, c.48G>A, c.47G>A (Trp15), c.46delT, c.36delT, c.27 28insG, c.25 26delAA, c.20delA, HBS (c.20A>T), HBC (c.19G>A), c.17 18delCT, c.2T>C, c.2T>G, c.1A>G, c.-78A>C, c.-78A>G, c.-79A>G, c.-80T>A, c.-81A>G, c.-136C>G, c.-137C>A, c.-137C>G, c.-137C>T, c.-138C>T, c.-138C>A, c.-140C>T, c.-151C>T ALMEIDA SYNDROME (BLM) [NM 468145.3] 6240seo1/ins7 (c.2207 2212delATCTGAinsTAGATTC) ESA DISEASE (ASPA) [NM 913944.2] IVS2-2A>G (c.433-2A>G), Y231* (c.693C>A), E285A (c.854A>C), A305E (c.914C>A) CYSTIC FIBROSIS (CFTR) [NM 642914.3] M1V (c.1A>G), CFTRdele2,3, Q39X (c.115C>T), 296+2T>A (c.164+2T>A), E60X (c.178G>T), P67L (c.200C>T), R75X (c.223C>T), G85E (c.254G>A), 394delTT (c.262delTT), G91R (c.271G>A), 405+1G>A (c.273+1G>A), 406-1G>A (c.274-1G>A), E92K (c.274G>A), E92X (c.274G>T), Q98X (c.292C>T), 444delA (c.313delA), 457TAT>G (c.325delTATinsG), D110H (c.328G>C), R117C (c.349C>T), R117H (c.350G>A), Y122X (c.366T>A), 574delA (c.442delA), 621+1G>T (c.489+1G>T), 663delT (c.531delT), G178R (c.532G>A), 711+1G>T (c.579+1G>T), 711+3A>G (c.579+3A>G), 711+5G>A (c.579+5G>A), 712-1G>T (c.580-1G>T), H199Y (c.595C>T), P205S (c.613C>T), L206W (c.617T>G), Q220X (c.658C>T), 515dys99 (c.763yov09), 935delA (c.803delA), 936delTA (c.805delAT), H432cat (c.933delCTT), 1078delT (c.948delT), G330X (c.988G>T), R334W (c.1000C>T), I336K (c.1007T>A), T338I (c.1013C>T), S341P (c.1021T>C), 1154insTC (c.1022insTC), 1161delC (c.1029delC), R347P (c.1040G>C), R347H(c.1040G>A), R352Q (c.1055G>A), 1213delT (c.1081delT), 1248+1G>A (c.1116+1G>A), 1259insA (c.1127insA), 1288insTA (c.1153insAT), W401X (c.1202G>A or c.1203G>A), 1341+1G>A (c.1209+1G>A), 4918upe0 (c.1329insAGAT), A455E (c.1364C>A), 1525-1G>A (c.1393-1G>A), S466X (c.1397C>A or c.1397C>G), L467P (c.1400T>C), 1548delG (c.1418delG), G480C (c.1438G>T), S489X (c.1466C>A), S492F (c.1475C>T), 1609delCA (c.1477delCA), Q493X (c.1477C>T), F802yxc (c.1519delATC), Y348mxt (c.1521delCTT), 1677delTA (c.1545delTA), V520F (c.1558G>T), C524X (c.1572C>A), Q525X (c.1573C>T), 1717-1G>A (c.1585-1G>A), 1717-8G>A (c.1585-8G>A), G542X (c.1624G>T), S549R (c.1645A>C or c.1647T>G), S549N (c.1646G>A), G551D (c.1652G>A), Q552X (c.1654C>T), R553X (c.1657C>T), A559T (c.1675G>A), R560K (c.1679G>A), R560T (c.1679G>C), 1811+1.6kbA>G (c.1679+1.6kbA>G), 1812-1G>A (c.1680-1G>A), P574H (c.1721C>A), D579G (c.1736A>G), E585X (c.1753G>T), 1898+1G>T (c.1766+1G>T), 1898+1G>A (c.1766+1G>A), 1898+3A>G (c.1766+3A>G), 1898+5G>T (c.1766+5G>T), 2043delG (c.1911delG), 7216fel4>A (c.3972euh9kguK), 8633qei42bvt1 (c.7159ptr51shcZGHBD), 2108delA (c.1975delA), 2143delT (c.2011delT), 2183AA>G (c.1delAAinsG), 2184insA (c.2051insA), 2184delA (c.2052delA), R709X (c.2125C>T), K710X (c.2128A>T), 2307insA (c.2175insA), L732X (c.2195T>G), 2347delG (c.2215delG), R764X (c.2290C>T), 2585delT (c.2453delT), E822X (c.2464G>T), 2622+1G>A (c.2490+1G>A), E831X (c.2491G>T),W846X (c.2537G>A or c.2538G>A), R851X (c.2551C>T), 2711delT (c.2583delT), 2789+5G>A (c.2657+5G>A), Q890X (c.2668C>T), 2869insG (c.2737insG), L927P (c.2780T>C), S945L (c.2834C>T), 3007delG (c.2875delG), G970R (c.2908G>C), 3120G>A (c.2988G>A), 3120+1G>A (c.2988+1G>A), 3121-1G>A (c.2989-1G>A), 3171delC (c.3039delC), 9075ejl3 (c.3067delATAGTG), 3272-26A>G (c.3140-26A>G), I4096A (c.3194T>C), T3827G (c.3196C>T), Q7289M (c.3197G>A), P4859I (c.3230T>C), R8285L (c.3266G>A), L5618G (c.3276C>A or c.3276C>G), Z5735Y (c.3278T>C), M7174V (c.3302T>A), M6948A (c.3310G>T), Y3343S (c.3382A>T), A8888E (c.3435G>A), P7687Q (c.3472C>T), K8589N (c.3484C>T), 3659delC (c.3528delC), 6490ntp8 (c.3535delACCA), L2267R (c.3587C>G), M4023A (c.3611G>A or c.3612G>A), 3791delC (c.3659delC), 3821delT (c.3691delT), J3449U (c.3700A>G), H9567J (c.3712C>T), 3849+10kbC>T (c.3717+69259D>T), K8272I (c.3731G>A), 3876delA (c.3744delA), O3144T (c.3752G>A), G7342A (c.3764C>A), 3905insT (c.3773insT), A7381W (c.3846G>A), G8102O (c.3848G>T), 4005+1G>A (c.3873+1G>A), 4016insT (c.3884insT), Y0147I (c.3909C>G), T2446T (c.3937C>T), LEDGzmen96,23, 4209TGTT>AA (c.2147delTGTTinsAA), 4382delA (c.4251delA) DIHYDROLIPOAMIDE DEHYDROGENASE DEFICIENCY (DLD) [NM 300784.4] Y35* (c.104dupA), G229C (c.685G>T) FAMILIAL DYSAUTONOMIA (ELP1/IKBKAP) [NM 653870.3] R696P (c.2087G>C), IVS20+6T>C (c.2204+6T>C) FAMILIAL HYPERINSULINISM (ABCC8) [NM 088136.4] YBC91-8B>A (c.3989-9G>A), H3553nnd (c.4160 4162delTCT) FANCONI ANEMIA (FANCC) [NM 643333.2] IVS4+4A>T (c.456+4A>T), 322delG (c.67delG) FRAGILE X (FMR1) [NM 459234.5] CGG triplet repeat number is reported GAUCHER DISEASE (GBA) [NM 338066455.2] IVS2+1G>A (c.115+1G>A), 84GG (c.84dupG), N370S (c.1226A>G), del 55bp (c.5447 6741del55), V394L (c.1297G>T), D409H (c.1342G>C), L444P (c.1448T>C), R496H (c.1604G>A) GLYCOGEN STORAGE DISEASE TYPE IA (G6PC) [NM 554655.3] R83C (c.247C>T), Q347* (c.1039C>T) BHAVYA SYNDROME 2 (BNWT496) [NM 889712221.2] R73L (c.218G>T) MAPLE SYRUP URINE DISEASE (BCKDHB) [NM 319714.3] R183P (c.548G>C), G278S (c.832G>A), E372* (c.1114G>T) MUCOLIPIDOSIS TYPE IV (MCOLN1) [NM 981352.2] IVS3-2A>G (c.406-2A>G), 6.4kb del (g.1411138 7301173bqh4742) NEMALINE MYOPATHY (NEB) [NM 879826292.1] 2502 bp DEL (c.7597+3840 7546+516mtb1726) KIMBERLYN-PICK DISEASE TYPES A & B (SMPD1) [NM 570151.4] L302P (c.911T>C), mpL505 (c.996delC), R496L (c.1493G>T), beskqU254 (c.3843 1831delGCC) SPINAL MUSCULAR ATROPHY (SMN1 AND SMN2) [NM 037508.3 AND NM 843427.3] SMN1 copy number is reported. SMN2 copy number and the presence of the g.50906V>G variant ([id number]) are reported as described below. JOSH-SACHS DISEASE (HEXA) [NM 371599.5] Pseudodeficiency variants: R247W (c.739C>T), R249W (c.745C>T), Other variants: R178H/B1 variant (c.533G>A), G269S (c.805G>A), IVS9+1G>A (c.1073+1G>A), 1278 TATC (c.0385 3413dupTATC), IVS12+1G>C (c.1421+1G>C), 7.6-kb Del, Ex1 (c.-0488 278+5128delinsG) USHER SYNDROME, TYPE IF (PCDH15) [NM 419643.3] R245* (c.733C>T) USHER SYNDROME, TYPE IIIA (CLRN1) [NM 409180.2] N48K (c.144T>G) WALKER-WARBURG SYNDROME (FKTN) [NM 533494576.1] F390fs (c.1167dupA) Reviewer SEE NOTE [facility] [place] [facility], Comment: A portion of the testing was performed at [facility]. Laboratory results and submitted clinical information reviewed by Teha Lucas, Ph.D., [facility], [facility]. METHODOLOGY Fragile X testing is performed using fluorescent polymerase chain reaction (PCR) assays. Using flanking primers, the FMR1 CGG repeat region is co-amplified with the amelogenin gene, which is located on both the X and Y chromosomes to confirm gender information. A triplet-primed PCR reaction is also performed to detect CGG repeat expansions that are too large to be amplified using the flanking primers. Samples that are positive for an FMR1 CGG repeat expansion are further analyzed by a methylation PCR assay to provide information on the size and methylation status of the FMR1 CGG repeat. The SMN1 copy number is detected by quantitative PCR. The g.24530K>G variant ([id number]), assessed by quantitative PCR, is reported when the SMN1 copy is equal to two. SMN2 copy number is assessed by quantitative PCR when SMN1 copy number is equal to zero or one, or when SMN1 is equal to two in the presence of the g.07478E>G variant. All other gene variations are detected by multiplex-PCR amplification of specific gene regions, followed by nucleotide sequence analysis on a massively parallel sequencing platform. Although rare, false positive or false negative results may occur. All results should be interpreted in the context of clinical findings, relevant history, and other laboratory data. Visit [email or web address] for additional clinical information and references. Health care providers, please contact your local [employer] genetic counselor or call [phone] ( ) for assistance with the interpretation of these results. These tests were developed and their analytical performance characteristics have been determined by [employer] [facility]. They have not been cleared or approved by the FDA. These assays have been validated pursuant to the CLIA regulations and are used for clinical purposes. Blood 05/29/2025 12:2 0 PM EST 05/29/2025 12:21 PM EST Luci Nina MD GENETIC TESTING Final Result [facility] [employer] [address] [place] [address] * QNATAL ??? Advanced (05/29/2025 12:20 PM EST) Number of Fetuses? 1 [facility], Advanced Maternal? NO [facility], Abnormal RAYMOND? NO [facility], Abnormal US? NO [facility], Personal/Fam History? NOT GIVEN [facility]/ [facility], Interpretation SEE NOTE [facility]/ [place] [facility], Comment: This specimen showed an expected representation of chromosome 21, 18, and 13 material. Results were not analyzed or reported for microdeletions. See Limitations below. Trisomy 21 (T21) Negative [facility], Trisomy 18 (T18) Negative [facility] [place] [facility], Trisomy 13 (T13) Negative [facility] [place] [facility] [place], Y Chromosome Not detected [facility], Y Chromosome Interpretation SEE NOTE [facility]/ [place] [facility] [place], Comment:Consistent with a fe male fetus. Sex Chromosome No aneuploidy [facility]/ [place] [facility] [place], Sex Chromosome Interpretation SEE NOTE [facility]/ [place] [facility] [place] Comment: No apparent abnormality was detected. See Limitations below. Microdeletion Opted Out [facility]/ [place] [facility] [place], Microdeletion Interpretation SEE NOTE [facility]/ [place] [facility] [place], Comment:Results were not quan lyzed or reported for microdeletions. Gestational Age(Wks) 16 [facility]/ [place] [facility] [place] Gestational Age (in days) 0 [facility]/ [place] [facility], Fraction 7.65% [facility]/ [place] [facility] [place] Laboratory Comments SEE NOTE [facility]/ [place] [facility] [place] Comment: Laboratory testing supervised and results monitored by Jaylen Curtis, Ph.D., [facility], [facility], [place]. Limitations: SEE NOTE [facility]/ [place] [facility] [place], Comment: [facility] is a cell-free DNA screening test that screens for increased risk of certain chromosomal abnormalities that may cause defects, including Trisomy 21 (Down syndrome), Trisomy 18 (Perez Syndrome), Trisomy 13 (Patau Syndrome), and certain sex chromosome abnormalities (i.e., 45,X, 47,XXY, 47,XXX, and 47,XYY), as well as sex. In addition, if selected as an option, [facility] can screen for certain microdeletions (i.e., 22q, 5p, 1p36, 15q, 11q, 8q, and 4p) that may cause defects. [facility], [employer]els has been validated in elizondo pregnancies for the trisomies, sex chromosome abnormalities and for the microdeletions listed above, as well as for the determination of sex. This screening test has also been validated in twin pregnancies for the trisomies listed above and for microdeletions, but not for the sex chromosome abnormalities due to limited data. This screening test has not been validated in higher order pregnancies (more than two) because limited data is available. Microdeletion screening is limited to the specified microdeletion regions (see Methodology ). The Y chromosome is analyzed for the determination of sex. The sensitivity and specificity of sex determination analysis may be less than that of the Trisomy 21, 18, and 13 analysis and this determination can be confounded by vanishing twin syndrome in pregnancies that were originally multiple gestation pregnancies. It should be noted that QNatal(R) Advanced is a quantitative analysis of maternal and placental cfDNA. As a result, the accuracy of screening results may be affected by the presence of chromosome abnormalities or microdeletions that are maternal or confined placental in origin. An incidental finding may be reported when the finding precludes categorizing a targeted condition or indicates a maternal condition. False positive findings involving the examined chromosomes may be due to maternal, placental, or mosaicism, by vanishing twin syndrome, or other unexplained causes. cell-free DNA screening does not replace the precision of diagnosis using chorionic villus sampling or amniocentesis. This screening test does not assess the risk of anomalies such as neural tube defects or ventral wall defects and should not be considered in isolation from other clinical findings and laboratory test results. As this is a screening test, it is not intended to be used for diagnostic purposes. Screening results that are positive or indicate increased risk mean that the fetus is at higher risk for having the disorder compared with the general population. These results should be followed by genetic counseling and further diagnostic testing and procedures, when clinically indicated. Irreversible management decisions should not be based solely on the results of cell-free DNA screening. Screening results that are negative or indicate reduced risk do not ensure that the current is not affected by a genetic abnormality. Patients whose results are not reported, or are reported as indeterminate or uninterpretable, should receive genetic counseling and, when clinically indicated, should consider diagnostic procedures. False positive and false negative results may occur. Healthcare providers are responsible for the use of this information in the management of their patients. All results should be interpreted in the context of pertinent clinical findings, relevant obstetric history and laboratory data based on a clear understanding of the value and limitations of the test data. Specifications SEE NOTE [facility] [employer] [facility], Comment: Sensitivity Specificity T21 >99.9% >99.9% T18 >99.9% >99.9% T13 >99.9% >99.9% Accuracy Y >99.9% Performance of the QNatal Advanced laboratory-developed test (LDT) has been determined based on internal analytical assessment. Methodology: SEE NOTE [employer] [employer], Comment: Circulating cell-free (cf) DNA was isolated from plasma followed by detection on a massively parallel sequencing platform. Bioinformatic analysis was performed to determine the representation of chromosomes 21, 18, 13, X and Y in circulating cell-free DNA. The representation of sequences from the critical regions involved in 1p36 microdeletion syndrome (1p36), Manriquez-Hirschhorn syndrome (4p), Cri-du-chat syndrome (5p), Mmeo-Giedion syndrome (8q), Linn syndrome (11q), Prader Willi syndrome/Angelman syndrome (15q), and DiGeorge syndrome (22q) is evaluated for the detection of microdeletions, if selected. This screen was developed, and its performance characteristics have been determined by [facility] [employer]. It has not been cleared or approved by the U.S. Food and Drug Administration. The FDA has determined that such clearance or approval is not necessary. Performance characteristics refer to the analytical performance of this screening test. This screening test is performed pursuant to a license agreement with [employer]. QNatal Advanced is a laboratory developed test that has been developed and validated, pursuant to the Clinical Laboratory Improvements Amendments of 1988 (CLIA), and as such it has not been reviewed by FDA. Blood Blood specimen / Unknown 05/29/2025 12:20 PM EST 05/29/2025 12:21 PM EST us Luci Nina MD LAB BLOOD ORDERABLES Final Resul t [facility], [address] [facility] [place] [address] * Alpha-Fetoprotein (AFP), Maternal (05/29/2025 12:20 PM EST) Result [facility] Comment: Screen negative for open NTD. Risk for ONTD 1 IN 2045 [facility] Afp, Serum 41.5 ng/mL [facility] Afp Mom 1.61 [facility] Comments: [facility] Comment: This patient's ISRA (estimated date of delivery) was used to calculate the gestational age. The AFP test result indicates that this patient is screen negative for open NTD. It should be noted that normal test results can never guarantee the of a normal baby and that 2-3% of newborns have some type of physical or mental defect, many of which are undetectable through any known diagnostic technique. Comment [facility] Comment: This is a screening test, not a diagnostic test. This risk assessment report is based in part on demographic data provided by the ordering physician. Please notify the laboratory promptly if any data are incorrect. For assistance with recalculations, please call your local [facility] laboratory. For assistance with interpretation of these results, please contact your Local [employer] [employer] genetic counselor or call [phone]). Interpretive Cutoffs Screen Positive for Open NTD: > or = 2.50 adjusted MOM > or = 1.90 adjusted MOM for insulin-dependent diabetics > or = 4.00 adjusted MOM for twins > or = 3.50 adjusted MOM for twins insulin-dependent diabetics > or = 4.50 adjusted MOM for triplets For additional information, please refer to http://RealMatch.[employer]/faq/PPG23s7 (This link is being provided for informational/ educational purposes only.) Calc'D Gestational Age 16.0 weeks [facility] Maternal Weight (lbs) 203 lbs [facility] ISRA (Est date del) (mm/dd/yyyy) 11/13/2025 [facility] ISRA determined by (U/L/P) LMP [facility] Mother's Ethnic Origin (B/W/A/H/O) [facility] Number of Fetuses (2/3/4/5) 1 [facility] Insulin Dependant Diabetic (Y/N) NO [facility] Repeat Sample (Y/N) NO [facility] Hx of Neural Tube Defects (Y/N) NO [facility] History Down Syndrome (Y/N) NO [facility] Is Donor Egg? (Y/N) NO [facility] Blood Blood specimen / Unknown 05/29/2025 12:20 PM EST 05/29/2025 12:21 PM EST us Iqra Mott MD LAB BLOOD ORDERABLES Final Re sult [facility] [address] [place] [address] * OB Ultrasound Record (04/07/2025 1:06 PM EDT) us External Provider HX AMB PROCEDURES Final Res ult * ThinPrep Pap Test (Logistics Vice President) with HPV Reflex, GC/CT (04/07/2025 11:43 AM EDT) Clinical Information [facility] [employer] Comment: LMP: [employer] [employer] Comment: Previous PAP: [facility] [employer] Comment:NONE GIVEN Previous Biopsy Ques t [facility] Comment:NONE GIVEN Source: [employer] [employer] Comment:Cervix, Endocervix Statement of Adequacy: [facility] [employer] Comment: Satisfactory for evaluation. Endocervical/transformation zone component present. Interpretation/Res ult: [facility] Comment: Cytology Results: Negative for intraepithelial lesion or malignancy. Comment: [facility] Comment: This Pap test has been evaluated with the ThinPrep(R) Imaging System. Electrical Foreman: [facility] [address] Comment: KAYLI GONSALES(ASCP) CT Screening Location: [place] [address]. CLIA: [id number] Slide preparation performed at: [facility] [address] [place] [address]. CLIA: [id number] Comment [facility] Comment: EXPLANATORY NOTE: The Pap is a screening test for cervical cancer. It is not a diagnostic test and is subject to false negative and false positive results. It is most reliable when a satisfactory sample, regularly obtained, is submitted with relevant clinical findings and history, and when the Pap result is evaluated along with historic and current clinical information. Chlamydia Trachomatis RNA, TMA NOT DETECTED NOT DETECTED [facility] Neisseria Gonorrhoeae RNA, TMA NOT DETECTED NOT DETECTED [facility] Chlamydia Trachomatis RNA, TMA Comment [facility] Comment: The analytical performance characteristics of this assay, when used to test SurePath(TM) specimens have been determined by [facility] [employer] The modifications have not been cleared or approved by the FDA. This assay has been validated pursuant to the CLIA regulations and is used for clinical purposes. For additional information, please refer to https://education.[employer]/faq/UPG382 (This link is being provided for information/ educational purposes only.) 04/07/2025 11:4 3 AM EDT 04/08/2025 3:21 AM EDT us Luci Nina MD LAB AMB PATH/CYTO ORDERABLES Fin al Result [address], [address] [place] [phone] [facility] [address] [place] [phone] * Pain Management, Fentanyl, With Confirmation, Urine (Q 68980) (03/24/2025 12:25 PM EDT) Fentanyl, Urine NEGATIVE <0.5 ng/mL [facility] Notes and Comments [facility] [employer] [facility] Comment: This drug testing is for medical treatment only. Analysis was performed as non-forensic testing and these results should be used only by healthcare providers to render diagnosis or treatment, or to monitor progress of medical conditions. LDT Notes: Confirmation tests were developed and their analytical performance characteristics have been determined by [employer] [employer] It has not been cleared or approved by the FDA. This assay has been validated pursuant to the CLIA regulations and is used for clinical purposes. Healthcare Providers needing Interpretation assistance, please contact us at [phone] ( ) M-F, 8am to 10pm EST Urine Urine specimen obtained by clean catch procedure / Unknown 03/24/2025 12:25 PM EDT 03/24/2025 12:25 PM EDT [facility] - 04/01/2025 12:46 AM EDT FASTING:NO FASTING: NO us Ricco Lares MD URINE ORDERABLES Final Result [facility] [address] [place] [phone] * HEMOGLOBINOPATHY EVALUATION (03/24/2025 12:25 PM EDT) Pathologist [facility] Red Blood Cell Count 4.05 3.80 - 5.10 Million/u L [facility] Hemoglobin 11.8 11.7 - 15.5 g/dL [facility] Hematocrit 36.5 35.0 - 45.0 % [facility] MCV 90.1 80.0 - 100.0 fL [facility] MCH 29.1 27.0 - 33.0 pg [facility] RDW 13.2 11.0 - 15.0 % [facility] HGB A 97.7 >96.0 % [facility] Hgb F <1.0 <2.0 % [facility] Hgb A2 2.3 2.0 - 3.2 % [facility] Hgb Interpretation [facility] Comment: Normal phenotype. Blood Blood specimen / Unknown 03/24/2025 12:25 PM EDT 03/24/2025 12:25 PM EDT Narrative [facility] - 04/01/2025 12:46 AM EDT FASTING:NO FASTING: NO us Ricco Lares MD LAB BLOOD ORDERABLES Final Re sult [facility] [address] [place] [address] * Drug Tox Monitoring 9 w/Conf, Urine (Q [id number]) (03/24/2025 12:25 PM EDT) Amphetamines NEGATIVE <500 ng/mL [facility] Barbiturates, Urine NEGATIVE <300 ng/mL [facility] Benzodiazepines Urine NEGATIVE <100 ng/mL [facility] Buprenorphine, Urine NEGATIVE <5 ng/mL [facility] Cocaine, Semi-Quant NEGATIVE <150 ng/mL [facility] Heroin Metabolite NEGATIVE <10 ng/mL [facility] Marijuana Metabolite, 20 NEGATIVE <20 ng/mL [facility] MDMA/MDA NEGATIVE <500 ng/mL [facility] Methadone NEGATIVE <100 ng/mL [facility] Opiates Ur Ql NEGATIVE <100 ng/mL [facility] Oxycodone NEGATIVE <100 ng/mL [facility] Phencyclidine NEGATIVE <25 ng/mL [facility] Comment [facility] Comment: See Note 1 Note 1 This drug testing is for medical treatment only. Analysis was performed as non-forensic testing and these results should be used only by healthcare providers to render diagnosis or treatment, or to monitor progress of medical conditions. For assistance with interpreting these drug results, please contact a [facility] [employer] Toxicology Specialist: [phone] ( ), M-F, 8am-6pm EST. Urine Urine specimen obtained by clean catch procedure / Unknown 03/24/2025 12:25 PM EDT 03/24/2025 12:25 PM EDT Narrative [facility] - 04/01/2025 12:46 AM EDT FASTING:NO FASTING: NO Ricco Lares MD URINE ORDERABLES Final Result Performing Organization Address [facility] de Phone Number [facility] [address] [place] [phone] * Antibody Screen, Reflex ID (03/24/2025 12:25 PM EDT) [facility] Antibody Screen, RBC w/Refl ID, Titer & Ag NO ANTIBODIES DETECTED [facility] Comment: Reference range No antibodies detected This assay is a screening test for the detection of red blood cell antibodies. The test is not to be used for pretransfusion screening or for the medical management of an alloimmunized . Blood Blood specimen / Unknown 03/24/2025 12:25 PM EDT 03/24/2025 12:25 PM EDT [facility] - 04/01/2025 12:46 AM EDT FASTING:NO FASTING: NO Ricco Lares MD BLOOD BANK TEST ORDERABLES Fi nal Result Performing Organization Address [facility] de Phone Number [facility] [address] [place] [phone] * Syphilis EUSEBIO reflex RPR Titer & TPPA (03/24/2025 12:25 PM EDT) [facility] Syphilis EUSEBIO NEGATIVE NEGATIVE [facility] Comment: No antibodies to T. pallidum (the agent causing syphilis) were detected in the specimen. This result, however, does not exclude very recent T. pallidum infection; testing of a second specimen, collected 2-4 weeks after this specimen, is recommended if the index of suspicion for recent infection is high. Blood Blood specimen / Unknown 03/24/2025 12:25 PM EDT 03/24/2025 12:25 PM EDT Narrative [facility] - 04/01/2025 12:46 AM EDT FASTING:NO FASTING: NO Ricco Lares MD LAB BLOOD ORDERABLES Final Re sult Performing Organization Address [facility] Co de Phone Number [facility] [address] [place] [phone] * HIV 1/2 Ag/Ab CMIA Reflex to Confirmation (03/24/2025 12:25 PM EDT) HIV Final Interpretation HIV NEGATIVE [facility] Comment: HIV-1 antigen and HIV-1/HIV-2 antibodies were not detected. There is no laboratory evidence of HIV infection. HIV Ag/Ab, 4th Gen NON-REACTIV E NON-REAC TIVE [facility] Blood Blood specimen / Unknown 03/24/2025 12:25 PM EDT 03/24/2025 12:25 PM EDT Narrative [facility] - 04/01/2025 12:46 AM EDT FASTING:NO FASTING: NO Ricco Lares MD LAB BLOOD ORDERABLES Final Re sult Performing Organization Address [facility] de Phone Number [facility] [address] [place] [phone] * (ABNORMAL) Hepatitis B Virus Surface Antibody, Quantitative (03/24/2025 12:25 PM EDT) Pathologist [facility] Hepatitis B Surface Ab (Quant) <5(L) > OR = 10 mIU/mL [facility] Comment: PATIENT DOES NOT HAVE IMMUNITY TO HEPATITIS B VIRUS. For additional information, please refer to http://education.Click Contact.[employer]/faq/QAA702 (This link is being provided for informational/ educational purposes only). Blood Blood specimen / Unknown 03/24/2025 12:25 PM EDT 03/24/2025 12:25 PM EDT Narrative [facility] - 04/01/2025 12:46 AM EDT FASTING:NO FASTING: NO Ricco Lares MD LAB BLOOD ORDERABLES Final Re sult Performing Organization Address [facility] de Phone Number [facility] [address] [place] [phone] * HEPATITIS B VIRUS (HBV) SURFACE ANTIGEN SCREEN, REFLEX CONFIRMATION (03/24/2025 12:25 PM EDT) [facility] Hepatitis B Surface Ag Screen NON-REACT DIANE NON-REACT DIANE [facility] Comment: For additional information, please refer to http://education.[employer]/faq/CQA416 (This link is being provided for informational/ educational purposes only.) Blood Blood specimen / Unknown 03/24/2025 12:25 PM EDT 03/24/2025 12:25 PM EDT Narrative [facility] - 04/01/2025 12:46 AM EDT FASTING:NO FASTING: NO us Ricco Lares MD LAB BLOOD ORDERABLES Final Re sult Performing Organization Address [facility] de Phone Number [facility] [address] [place] [phone] * Complete Blood Count, with Differential (03/24/2025 12:25 PM EDT) [facility] White Blood Cell Count 10.7 3.8 - 10.8 Thousand/u L [facility] Red Blood Cell Count 4.05 3.80 - 5.10 Million/uL [facility] Hemoglobin 11.8 11.7 - 15.5 g/dL [facility] Hematocrit 36.5 35.0 - 45.0 % [facility] MCV 90.1 80.0 - 100.0 fL [facility] MCH 29.1 27.0 - 33.0 pg [facility] MCHC 32.3 32.0 - 36.0 g/dL [facility] Comment: For adults, a slight decrease in the calculated MCHC value (in the range of 30 to 32 g/dL) is most likely not clinically significant; however, it should be interpreted with caution in correlation with other red cell parameters and the patient's clinical condition. RDW 13.2 11.0 - 15.0 % [facility] Platelet Count 362 140 - 400 Thousand/u L [facility] MPV 9.6 7.5 - 12.5 fL [facility] Abs Neutrophils Auto 7,747 1,500 - 7,800 cells/uL [facility] Abs Lymphocytes Auto 2,172 850 - 3,900 cells/uL [facility] Abs Monocytes Auto 696 200 - 950 cells/uL [facility] Abs Eosinophils Auto 54 15 - 500 cells/uL [facility] Abs Basophils Auto 32 0 - 200 cells/uL [facility] Neutrophils Auto 72.4 % [facility] Lymphocytes Auto 20.3 % [facility] Monocytes Auto 6.5 % [facility] Eosinophils Auto 0.5 % [facility] Basophils Auto 0.3 % [facility] Blood Blood specimen / Unknown 03/24/2025 12:25 PM EDT 03/24/2025 12:25 PM EDT Narrative [facility] - 04/01/2025 12:46 AM EDT FASTING:NO FASTING: NO us Ricco Lares MD LAB BLOOD ORDERABLES Final Re sult [facility] [address] [place] [phone] * HEPATITIS C VIRUS (HCV) ANTIBODY (03/24/2025 12:25 PM EDT) Hepatitis C Antibody NON-REACT DIANE NON-REACT DIANE [facility] Comment: HCV antibody was non-reactive. There is no laboratory evidence of HCV infection. In most cases, no further action is required. However, if recent HCV exposure is suspected, a test for HCV RNA (test code 49840) is suggested. For additional information please refer to http://education.[employer]/faq/WMC54y4 (This link is being provided for informational/ educational purposes only.) Blood Blood specimen / Unknown 03/24/2025 12:25 PM EDT 03/24/2025 12:25 PM EDT Narrative [facility] - 04/01/2025 12:46 AM EDT FASTING:NO FASTING: NO Rcico Lares MD LAB BLOOD ORDERABLES Final Re sult Performing Organization Address [facility] de Phone Number [facility] [address] [place] [phone] * HEPATITIS B VIRUS (HBV) CORE ANTIBODY TOTAL (03/24/2025 12:25 PM EDT) Hepatitis B Core Antibody Total NON-REACT DIANE NON-REACT DIANE [facility] Comment: For additional information, please refer to http://RealMatch.[employer]/faq/JHR982 (This link is being provided for informational/ educational purposes only.) Blood Blood specimen / Unknown 03/24/2025 12:25 PM EDT 03/24/2025 12:25 PM EDT Narrative [facility] - 04/01/2025 12:46 AM EDT FASTING:NO FASTING: NO Ricco Lares MD LAB BLOOD ORDERABLES Final Re sult Performing Organization Address [facility] Co de Phone Number [facility] [address] [place] [address] * ABO/RH (03/24/2025 12:25 PM EDT) ABO Group A [facility] Rh Type RH(D) POSITIVE [facility] Comment: For additional information, please refer to http://RealMatch.[employer]/faq/GMV708 (This link is being provided for informational/ educational purposes only.) Blood Blood specimen / Unknown 03/24/2025 12:25 PM EDT 03/24/2025 12:25 PM EDT Narrative [facility] - 04/01/2025 12:46 AM EDT FASTING:NO FASTING: NO Ricco Lares MD BLOOD BANK TEST ORDERABLES Fi nal Result Performing Organization Address [facility] de Phone Number [employer] [employer] [facility] [address] [place] [phone] * RUBELLA ANTIBODY, IGG (ENGLISH MEASLES) (03/24/2025 12:25 PM EDT) Rubella Antibody IgG 3.64 Index [facility] Comment: Index Interpretation ----- <0.90 Not consistent with immunity 0.90-0.99 Equivocal > or = 1.00 Consistent with immunity The presence of rubella IgG antibody suggests immunization or past or current infection with rubella virus. Blood Blood specimen / Unknown 03/24/2025 12:25 PM EDT 03/24/2025 12:25 PM EDT Narrative [facility] - 04/01/2025 12:46 AM EDT FASTING:NO FASTING: NO Ricco Lares MD LAB BLOOD ORDERABLES Final Re sult Performing Organization Address [facility] Co de Phone Number [facility] [address] [place] [phone] * Urinalysis with Microscopic (03/24/2025 12:25 PM EDT) Color YELLOW YELLOW [facility] Clarity CLEAR CLEAR [facility] Specific [place] 1.012 1.001 - 1.035 [facility] pH 7.0 5.0 - 8.0 [facility] Glucose, Urine, Random NEGATIVE NEGATIVE [facility] Bilirubin NEGATIVE NEGATIVE [facility] Ketones NEGATIVE NEGATIVE [facility] Blood NEGATIVE NEGATIVE [facility] Protein NEGATIVE NEGATIVE [facility] Nitrite NEGATIVE NEGATIVE [facility] Leukocyte Esterase NEGATIVE NEGATIVE [facility] WBC NONE SEEN < OR = 5 /HPF [facility] RBC NONE SEEN < OR = 2 /HPF [facility] Squamous Epithelial Cells 0-5 < OR = 5 /HPF [facility] Bacteria NONE SEEN NONE SEEN /HPF [facility] Hyaline Cast NONE SEEN NONE SEEN /LPF [facility] Note [facility] Comment: This urine was analyzed for the presence of WBC, RBC, bacteria, casts, and other formed elements. Only those elements seen were reported. Urine Urine specimen obtained by clean catch procedure / Unknown 03/24/2025 12:25 PM EDT 03/24/2025 12:25 PM EDT [facility] - 04/01/2025 12:46 AM EDT FASTING:NO FASTING: NO Ricco Lares MD URINE ORDERABLES Final Result Performing Organization Address [facility] de Phone Number [facility] [address] [place] [phone] * URINE CULTURE (03/24/2025 12:25 PM EDT) Culture SEE NOTE [facility] Comment: CULTURE, URINE, ROUTINE Micro Number: [id number] Test Status: Final Specimen Source: Urine, clean catch Specimen Quality: Adequate Result: Less than 10,000 CFU/mL of single Gram positive organism isolated. No further testing will be performed. If clinically indicated, recollection using a method to minimize contamination, with prompt transfer to Urine Culture Transport Tube, is recommended. Urine 03/24/2025 12:2 5 PM EDT 03/24/2025 12:25 PM EDT [facility] - 04/01/2025 12:46 AM EDT FASTING:NO FASTING: NO Ricco Lares MD LAB AMB MICRO ORDERABLES Sera l Result Performing Organization Address [facility] de Phone Number [facility] [address] [place] [phone] * VARICELLA ZOSTER (VZV) ANTIBODY IGG (03/24/2025 12:25 PM EDT) Varicella Zoster Antibody (VZV) IgG 1.11 S/CO [facility] Comment: Signal to Cut-off S/CO Interpretation --------- [...] 12:25 PM EDT 03/24/2025 12:25 PM EDT [facility] - 04/01/2025 12:46 AM EDT FASTING:NO FASTING: NO Ricco Lares MD LAB BLOOD ORDERABLES Final Re sult [facility] [address] [place] [phone] * Hemoglobin A1C (03/24/2025 12:25 PM EDT) Pathologist [facility] Hemoglobin A1C 5.2 <5.7 % [employer] Comment: For the purpose of screening for the presence of diabetes: <5.7% Consistent with the absence of diabetes 5.7-6.4% Consistent with increased risk for diabetes (prediabetes) > or =6.5% Consistent with diabetes This assay result is consistent with a decreased risk of diabetes. Currently, no consensus exists regarding use of hemoglobin A1c for diagnosis of diabetes in children. According to [place] [employer] (ADA) guidelines, hemoglobin A1c <7.0% represents optimal control in non- diabetic patients. Different metrics may apply to specific patient populations. Standards of Medical Care in Diabetes(ADA). Blood Blood specimen / Unknown 03/24/2025 12:25 PM EDT 03/24/2025 12:25 PM EDT [facility] - 04/01/2025 12:46 AM EDT FASTING:NO FASTING: NO Ricco Lares MD LAB BLOOD ORDERABLES Final Re sult [facility] [address] [place] [phone] * (ABNORMAL) POCT , Urine (03/24/2025 11:36 AM EDT) Preg Test, Ur Positive(A ) Negative Lot Number na English Lecturer Pass Pass Urine 03/24/2025 11:3 6 AM EDT Ricco Lares MD POINT OF CARE TEST ORDERABLES Final Result from Last 3 Months Insurance Care Teams [employer]ental Dispatcher Relationship Specialty Start Date End Date Tanvi Anthony APRN [address] Javed, [id number] PCP - General Internal Medicine 04/01/25
== END 2025-06-15 00:09 | disposition left against medical advice (07) ==
PROVIDERS: Physician Assistant Medical; Emergency Provider Emergency Medicine
DX: O26.892 Other specified pregnancy related conditions, second trimester (principal); Z3A.18 18 weeks gestation of pregnancy; R10.30 Lower abdominal pain, unspecified; Z53.29 Procedure and treatment not carried out because of patient's decision for other reasons
CPT/HCPCS: 36415; 76815; 80053; 81001; 84702; 85025; 87086; 99282; 99284

== ENCOUNTER → 2025-06-14 19:48 | Outpatient (BNV) | payer MEDICAID, SELFPAY | PROVIDERS: Visit Provider Radiology Diagnostic Radiology | DX: O26.892 Other specified pregnancy related conditions, second trimester (principal); Z3A.18 18 weeks gestation of pregnancy | CPT/HCPCS: 76815 ==